=== PATIENT | male | born 1945 | race American Indian/Alaskan Native ===

== ENCOUNTER 2017-06-08 03:59 | Inpatient (IN) | payer MEDICARE ==
--- NOTE | 2017-06-08 05:31 | XRay Report ---
FINAL REPORT EXAM: XR CHEST ROUTINE 2V HISTORY: Shortness of breath TECHNIQUE: AP and lateral chest radiographs PRIORS: 05/06/2017 FINDINGS: No mediastinal shift. Cardiac silhouette is not enlarged. Aortic arch calcification. No pneumothorax, effusion, or focal pulmonary opacity. No acute skeletal finding. IMPRESSION: No focal pulmonary opacity.
[2017-06-08 05:45] LABS: Anion Gap 22 mmol/L; BUN/Creatinine Ratio 13; Blood Urea Nitrogen 13 mg/dL (9-20); Calcium 9.3 mg/dL (8.4-10.2); Carbon Dioxide 22 mmol/L (22-30); Glucose 125 mg/dL (75-100); Potassium 4.1 mmol/L (3.6-5.0); Sodium 139 mmol/L (137-145)
[2017-06-08 05:57] LABS: Basophils % (Auto) 0.9 % (0.0-1.8); Eosinophils % (Auto) 4.6 % (0.0-4.3); Hematocrit 44.9 % (35.5-45.6); Hemoglobin 14.6 gm/dl (11.8-15.2); Mean Corpuscular HGB Conc 33 % (32-34); Mean Corpuscular Hemoglobin 30 pg (28-32); Mean Corpuscular Volume 92 fl (84-94); Platelet Count 211 K/mm3 (140-440); Red Blood Count 4.91 M/mm3 (3.65-5.03); Red Cell Distribution Width 13.1 % (13.2-15.2); White Blood Count 5.6 K/mm3 (4.5-11.0)
[2017-06-08 07:05] LABS: Bilirubin,Urine NEG (Negative); Blood,Urine NEG (Negative); Ketones,Urine NEG (Negative); Leukocyte Esterase,Urine NEG (Negative); Nitrite,Urine NEG (Negative); Protein,Urine <15 mg/dL mg/dL (Negative)
[2017-06-08] MEDS ORDERED: NITRO-BID 2% TP ONE (08:56)
[2017-06-08] MEDS ORDERED: ZOFRAN IV ONE (08:56)
[2017-06-08] MEDS ORDERED: ASPIRIN PO ONE (08:57)
--- NOTE | 2017-06-08 09:04 | Emergency Department Report ---
HPI - General Chief Complaint: Chest Pain Time Seen by Provider: 06/08/17 08:46 - HPI HPI: Room 24 The patient is a 71-year-old male presenting with a chief complaint of chest pain. The patient's daughter states at approximately 02:00 the patient called her complaint of chest pain shortness of breath and left arm numbness. The daughter says patient was trembling as he has done in the past. The daughter states she left the room to get equipment to check his blood pressure when she heard him fall in the bathroom. Daughter states the patient was unconscious for approximately 1-2 minutes. Patient describes chest pain as a pressure and associated with nausea without vomiting. Patient also has shortness of breath and diaphoresis with this chest pain. The patient currently denies chest pain. The patient's last stress test occurred approximately one year ago but he has never had a cardiac catheterization Location: Chest Duration: [See above] Quality: Pressure Severity: Currently 0/10 Modifying factors: [see above] Context: [see above] Mode of transportation: [not driving] ED Past Medical Hx - Past Medical History Previous Medical History?: Yes Hx Hypertension: Yes Hx of Cancer: Yes (prostate CA) Additional medical history: high cholesterol - Surgical History Past Surgical History?: Yes Additional Surgical History: hernia repair, prostate seed implant - Family History Family history: no significant - Social History Smoking Status: Never Smoker Substance Use Type: None - Medications Home Medications: Home Medications Medication Instructions Recorded Confirmed Last Taken Type Lisinopril [Zestril TAB] 20 mg PO QDAY 11/07/13 05/06/17 05/05/17 09:00 History 20 mg Simvastatin 20 mg PO QHS 11/07/13 05/06/17 05/05/17 21:00 History 20 mg amLODIPine [Norvasc] 10 mg PO DAILY 11/07/13 05/06/17 05/05/17 History 10 mg oxyCODONE /ACETAMINOPHEN [Percocet 1 tab PO Q6H PRN #20 tablet 05/07/17 Unknown Rx 5/325 mg] Acetaminophen [Acetaminophen TAB] 325 mg PO Q4H PRN #30 tablet 05/08/17 Unknown Rx ED Review of Systems ROS: Stated complaint: CP Other details as noted in HPI Constitutional: diaphoresis Respiratory: shortness of breath Cardiovascular: chest pain Gastrointestinal: nausea. denies: vomiting Neurological: paresthesias Physical Exam - Physical Exam Vital Signs: Vital Signs 06/08/17 06/08/17 04:52 08:03 Temperature 98.5 F 98.1 F Pulse Rate 69 60 Respiratory 18 19 Rate Blood Pressure 156/70 Blood Pressure 164/72 [Left] O2 Sat by Pulse 100 100 Oximetry Physical Exam: GENERAL: The patient is well-developed well-nourished male lying on stretcher not appearing to be in acute distress. [] HEENT: Normocephalic. Atraumatic. Extraocular motions are intact. Patient has moist mucous membranes. NECK: Supple. Trachea midline. No axial step off CHEST/LUNGS: Clear to auscultation. There is no respiratory distress noted. HEART/CARDIOVASCULAR: Regular. There is no tachycardia. There is no gallop rub or murmur. ABDOMEN: Abdomen is soft, nontender. Patient has normal bowel sounds. There is no abdominal distention. SKIN: There is no rash. There is no edema. There is no diaphoresis. NEURO: The patient is awake, alert, and oriented. The patient is cooperative. The patient has normal speech MUSCULOSKELETAL: There is no evidence of acute injury. ED Course Vital Signs 06/08/17 06/08/17 04:52 08:03 Temperature 98.5 F 98.1 F Pulse Rate 69 60 Respiratory 18 19 Rate Blood Pressure 156/70 Blood Pressure 164/72 [Left] O2 Sat by Pulse 100 100 Oximetry ED Medical Decision Making - Lab Data Result diagrams: 06/08/17 05:04 06/08/17 05:04 Laboratory Tests 06/08/17 06/08/17 06/08/17 05:04 05:04 05:55 WBC 5.6 RBC 4.91 Hgb 14.6 Hct 44.9 MCV 92 MCH 30 MCHC 33 RDW 13.1 L Plt Count 211 Lymph % (Auto) 36.2 H [place] % (Auto) 9.3 H Eos % (Auto) 4.6 H Baso % (Auto) 0.9 Lymph # 2.0 [place] # 0.5 Eos # 0.3 Baso # 0.0 Seg Neutrophils % 49.0 Seg Neutrophils # 2.7 Sodium 139 Potassium 4.1 Chloride 99.0 Carbon Dioxide 22 Anion Gap 22 BUN 13 Creatinine 1.0 Estimated GFR > 60 BUN/Creatinine Ratio 13 Glucose 125 H Calcium 9.3 Troponin T < 0.010 Urine Color Straw Urine Turbidity Clear Urine pH 6.0 Ur Specific [place] 1.009 Urine Protein <15 mg/dl Urine Glucose (UA) Neg Urine Ketones Neg Urine Blood Neg Urine Nitrite Neg Urine Bilirubin Neg Urine Urobilinogen 2.0 Ur Leukocyte Esterase Neg Urine WBC (Auto) 3.0 Urine RBC (Auto) 2.0 U Epithel Cells (Auto) < 1.0 - EKG Data -: EKG Interpreted by Me EKG shows normal: sinus rhythm Rate: normal - EKG Data When compared to previous EKG there are: no significant change Interpretation: unchanged when compared t (05/06/2017) - Radiology Data Radiology results: image reviewed (chest x-ray) interpreted by me: Chest x-ray- no focal infiltrates, no pneumothorax FINAL REPORT EXAM: XR CHEST ROUTINE 2V HISTORY: Shortness of breath TECHNIQUE: AP and lateral chest radiographs PRIORS: 05/06/2017 FINDINGS: No mediastinal shift. Cardiac silhouette is not enlarged. Aortic arch calcification. No pneumothorax, effusion, or focal pulmonary opacity. No acute skeletal finding. IMPRESSION: No focal pulmonary opacity. Transcribed By: MB Dictated By: MILES HERNÁNDEZ MD Electronically Authenticated By: MILES HERNÁNDEZ MD Signed Date/Time: 06/08/17127 DD/ 7 TD/TT: 06/08/17127 - Differential Diagnosis ACS, GERD, pericarditis, dysrhythmia Critical care attestation.: If time is entered above; I have spent that time in minutes in the direct care of this critically ill patient, excluding procedure time. ED Disposition Clinical Impression: Syncope, Chest pain Disposition: OP ADMIT IP TO THIS HOSP Is pt being admited?: Yes Does the pt Need Aspirin: Yes Condition: Fair Instructions: Syncope (ED), Chest Pain (ED) Referrals: MOI LOVE MD [Primary Care Provider] - 3-5 Days Time of Disposition: 09:07 (hospitalist paged)
[2017-06-08] MEDS ORDERED: MORPHINE IV PRN (10:41)
[2017-06-08] MEDS ORDERED: TYLENOL PO PRN (10:41)
[2017-06-08] MEDS ORDERED: DULCOLAX PR PRN (10:41)
[2017-06-08] MEDS ORDERED: ZOFRAN IV PRN (10:41)
[2017-06-08] MEDS ORDERED: NITROSTAT SL PRN (10:44)
--- NOTE | 2017-06-08 10:44 | History and Physical Report ---
<THADDEUS CAMARGO - Last Filed: 06/08/17 11:53> History of Present Illness Date of examination: 06/08/17 Date of admission: 06/08/2017 Chief complaint: Chest pain and syncope History of present illness: Patient is a 71-year-old male with a past medical history of hypertension, prostate cancer and hyperlipidemia who presents to emergency department for complaining of left sided chest pain and syncope. Per his daughter the pain began this morning around 2:00 AM intermittent left side chest pain. patient's daughter states the patient called her complaint of chest pain shortness of breath and left arm numbness; by the time she got to his room ; she found him trembling his whole body. She left him in his room to get equipment to check his blood pressure; shortly after she heard him fall in the bathroom. She found him lying on the floor unconscious; she thinks he lost consciousness for about 1-2 minutes. Patient located his pain over his substerna somewhat in the left pigastric area. Patient described as,constant burning, stabbing pain. The pain lasted for few hours and he states that pain was radiating to left arm. Also the patient did experience some tingling and numbness in his left arm after the pain ceased. Pain increased with palpation, there is no reliving factors. The painful episodes did not increase in intensity or severity during this time. The patient denies chest pain at present time. He denies shortness of breath, and vomiting during these episodes of pain. Patient reported nausea and diaphoresis including feeling clammy.Patient has a recent syncopal episode and chest pain for which he was admitted here [facility] and [facility] with extensive cardiac workup was performed. Past History Past Medical History: hypertension, hyperlipidemia, other (prostate cancer) Past Surgical History: cholecystectomy, Other Social history: denies: smoking, alcohol abuse Family history: denies: hypertension Medications and Allergies Allergies Allergy/AdvReac Type Severity Reaction Status Date / Time No Known Allergies Allergy Verified 11/06/13 16:30 Home Medications Medication Instructions Recorded Confirmed Last Taken Type Lisinopril [Zestril TAB] 20 mg PO QDAY 11/07/13 06/08/17 06/07/17 History amLODIPine [Norvasc] 10 mg PO DAILY 11/07/13 06/08/17 06/07/17 History AtorvaSTATin [Lipitor] 20 mg PO QHS 06/08/17 06/08/17 06/07/17 History Active Meds: Active Medications Acetaminophen (Tylenol) 650 mg PO Q4H PRN PRN Reason: Pain MILD(1-3)/Fever >100.5/BATES Bisacodyl (Dulcolax) 10 mg [place] QDAY PRN PRN Reason: Constipation unrelieved by MOM Enoxaparin Sodium (Lovenox) 40 mg SUB-Q QDAY [facility] Morphine Sulfate (Morphine) 2 mg IV Q4H PRN PRN Reason: Pain, Moderate (4-6) Ondansetron HCl (Zofran) 4 mg IV Q8H PRN PRN Reason: N/V unrelieved by Reglan Review of Systems Constitutional: sweats, no weight loss, no weight gain, no fever, no chills Ears, nose, mouth and throat: no nose pain, no nasal congestion, no nasal discharge Cardiovascular: chest pain, no lightheadedness, no shortness of breath, no dyspnea on exertion, no paroxysmal nocturnal dyspnea Respiratory: no cough, no cough with sputum, no shortness of breath, no dyspnea on exertion Gastrointestinal: no nausea, no vomiting, no diarrhea Genitourinary Male: no urinary frequency, no urinary hesitancy, no nocturia Rectal: no incontinence, no bleeding Musculoskeletal: no neck pain, no shooting arm pain, no arm numbness/tingling Integumentary: no redness, no sores, no wounds Neurological: no weakness, no parathesias, no numbness, no tingling Psychiatric: no sleep disturbances, no insomnia, no hypersomnia, no change in appetite Endocrine: no cold intolerance, no heat intolerance, no polyphagia, no excessive thirst Hematologic/Lymphatic: no easy bruising, no easy bleeding Allergic/Immunologic: no urticaria, no allergic rhinitis Exam - Constitutional Vitals: Temp Pulse Resp BP Pulse Ox 98.1 F 60 19 164/72 100 06/08/17 08:03 06/08/17 08:03 06/08/17 08:03 06/08/17 08:03 06/08/17 08:03 General appearance: Present: no acute distress - EENT Eyes: Present: PERRL ENT: hearing intact - Neck Neck: Present: supple - Respiratory Respiratory effort: normal Respiratory: bilateral: CTA - Cardiovascular Rhythm: regular Heart Sounds: Present: S1 & S2 - Abdominal General gastrointestinal: Present: soft, non-tender Male genitourinary: Present: deferred - Rectal Rectal Exam: deferred - Integumentary Integumentary: Present: clear, warm, dry - Musculoskeletal Musculoskeletal: strength equal bilaterally - Psychiatric Psychiatric: appropriate mood/affect - Neurologic Neurologic: moves all extremities - Allied Health Allied health notes reviewed: nursing Results - Labs CBC & Chem 7: 06/08/17 05:04 06/08/17 05:04 Labs: Laboratory Last Values WBC 5.6 K/mm3 (4.5-11.0) 06/08/17 05:04 RBC 4.91 M/mm3 (3.65-5.03) 06/08/17 05:04 Hgb 14.6 gm/dl (11.8-15.2) 06/08/17 05:04 Hct 44.9 % (35.5-45.6) 06/08/17 05:04 MCV 92 fl (84-94) 06/08/17 05:04 MCH 30 pg (28-32) 06/08/17 05:04 MCHC 33 % (32-34) 06/08/17 05:04 RDW 13.1 % (13.2-15.2) L 06/08/17 05:04 Plt Count 211 K/mm3 (140-440) 06/08/17 05:04 Lymph % (Auto) 36.2 % (13.4-35.0) H 06/08/17 05:04 [place] % (Auto) 9.3 % (0.0-7.3) H 06/08/17 05:04 Eos % (Auto) 4.6 % (0.0-4.3) H 06/08/17 05:04 Baso % (Auto) 0.9 % (0.0-1.8) 06/08/17 05:04 Lymph # 2.0 K/mm3 (1.2-5.4) 06/08/17 05:04 [place] # 0.5 K/mm3 (0.0-0.8) 06/08/17 05:04 Eos # 0.3 K/mm3 (0.0-0.4) 06/08/17 05:04 Baso # 0.0 K/mm3 (0.0-0.1) 06/08/17 05:04 Seg Neutrophils % 49.0 % (40.0-70.0) 06/08/17 05:04 Seg Neutrophils # 2.7 K/mm3 (1.8-7.7) 06/08/17 05:04 Sodium 139 mmol/L (137-145) 06/08/17 05:04 Potassium 4.1 mmol/L (3.6-5.0) 06/08/17 05:04 Chloride 99.0 mmol/L (98-107) 06/08/17 05:04 Carbon Dioxide 22 mmol/L (22-30) 06/08/17 05:04 Anion Gap 22 mmol/L 06/08/17 05:04 BUN 13 mg/dL (9-20) 06/08/17 05:04 Creatinine 1.0 mg/dL (0.8-1.5) 06/08/17 05:04 Estimated GFR > 60 ml/min 06/08/17 05:04 BUN/Creatinine Ratio 13 % 06/08/17 05:04 Glucose 125 mg/dL (75-100) H 06/08/17 05:04 Calcium 9.3 mg/dL (8.4-10.2) 06/08/17 05:04 Troponin T < 0.010 ng/mL (0.00-0.029) 06/08/17 08:01 Urine Color Straw (Yellow) 06/08/17 05:55 Urine Turbidity Clear (Clear) 06/08/17 05:55 Urine pH 6.0 (5.0-7.0) 06/08/17 05:55 Ur Specific [place] 1.009 (1.003-1.030) 06/08/17 05:55 Urine Protein <15 mg/dl mg/dL (Negative) 06/08/17 05:55 Urine Glucose (UA) Neg mg/dL (Negative) 06/08/17 05:55 Urine Ketones Neg mg/dL (Negative) 06/08/17 05:55 Urine Blood Neg (Negative) 06/08/17 05:55 Urine Nitrite Neg (Negative) 06/08/17 05:55 Urine Bilirubin Neg (Negative) 06/08/17 05:55 Urine Urobilinogen 2.0 mg/dL (<2.0) 06/08/17 05:55 Ur Leukocyte Esterase Neg (Negative) 06/08/17 05:55 Urine WBC (Auto) 3.0 /HPF (0.0-6.0) 06/08/17 05:55 Urine RBC (Auto) 2.0 /HPF (0.0-6.0) 06/08/17 05:55 U Epithel Cells (Auto) < 1.0 /HPF (0-13.0) 06/08/17 05:55 Assessment and Plan Assessment and plan: Patient is a 71-year-old male with a past medical history of hypertension, prostate cancer and hyperlipidemia who presents to emergency department for complaining of left sided chest pain and syncope. Per his daughter the pain began this morning around 2:00 AM intermittent left side chest pain. Chest pain We will admit to telemetry floor. EKG on admissionshowing bradycardia, no other changes Negative cardiac enzyme X2 Start on aspirin Nitroglycerin when necessary Morphine ordered for pain Cardiology consulted and stress test performed 03/04 - no evidence of ischemia or necrosis, EF 60% Cardiology consult Bradycardia/SSS Extensive workup at [facility] Status post 1 month Holter monitor - 30 day event monitor was reviewed by cardiology and there were no significant events, so there is no indication for pacemaker placement Holding his home CCB Cardiology consult Hypertension Continued on lisinopril Holding amlodipine due to bradycardia Monitor BP and adjust treatment as needed Hyperlipidemia Continue Zocor DVT prophylaxis Lovenox Advance Directives: Yes VTE prophylaxis?: Chemical Contraindication Mechanical VTE Prophylaxis: Treatment Not Indicated Plan of care discussed with patient/family: Yes <MILES KAMARA - Last Filed: 06/09/17 19:19> History of Present Illness Date of admission: 06/08/17 10:42 Medications and Allergies Active Meds: Active Medications Acetaminophen (Tylenol) 650 mg PO Q4H PRN PRN Reason: Pain MILD(1-3)/Fever >100.5/BATES Aspirin (Aspirin) 325 mg PO DAILY [facility] Last Admin: 06/09/17 10:50 Dose: 325 mg Atorvastatin Calcium (Lipitor) 20 mg PO QHS [facility] Last Admin: 06/08/17 21:45 Dose: 20 mg Bisacodyl (Dulcolax) 10 mg [place] QDAY PRN PRN Reason: Constipation unrelieved by MOM Enoxaparin Sodium (Lovenox) 40 mg SUB-Q QDAY [facility] Last Admin: 06/09/17 10:50 Dose: 40 mg Lisinopril (Zestril) 20 mg PO QDAY [facility] Last Admin: 06/09/17 10:50 Dose: 20 mg Morphine Sulfate (Morphine) 2 mg IV Q4H PRN PRN Reason: Pain, Moderate (4-6) Nitroglycerin (Nitrostat) 0.4 mg SL .Q5MIN PRN PRN Reason: Chest Pain Ondansetron HCl (Zofran) 4 mg IV Q8H PRN PRN Reason: N/V unrelieved by Reglan Exam - Constitutional Vitals: Temp Pulse Resp BP Pulse Ox 98.4 F 59 L 18 122/64 97 06/09/17 04:03 06/09/17 04:03 06/09/17 04:03 06/09/17 04:03 06/09/17 04:03 Results - Labs CBC & Chem 7: 06/09/17 05:34 06/09/17 05:34 Labs: Laboratory Last Values WBC 5.1 K/mm3 (4.5-11.0) 06/09/17 05:34 RBC 4.82 M/mm3 (3.65-5.03) 06/09/17 05:34 Hgb 14.7 gm/dl (11.8-15.2) 06/09/17 05:34 Hct 43.9 % (35.5-45.6) 06/09/17 05:34 MCV 91 fl (84-94) 06/09/17 05:34 MCH 31 pg (28-32) 06/09/17 05:34 MCHC 33 % (32-34) 06/09/17 05:34 RDW 13.2 % (13.2-15.2) 06/09/17 05:34 Plt Count 199 K/mm3 (140-440) 06/09/17 05:34 Lymph % (Auto) 33.9 % (13.4-35.0) 06/09/17 05:34 Pierce % (Auto) 11.7 % (0.0-7.3) H 06/09/17 05:34 Eos % (Auto) 4.9 % (0.0-4.3) H 06/09/17 05:34 Baso % (Auto) 0.8 % (0.0-1.8) 06/09/17 05:34 Lymph # 1.7 K/mm3 (1.2-5.4) 06/09/17 05:34 [place] # 0.6 K/mm3 (0.0-0.8) 06/09/17 05:34 Eos # 0.3 K/mm3 (0.0-0.4) 06/09/17 05:34 Baso # 0.0 K/mm3 (0.0-0.1) 06/09/17 05:34 Seg Neutrophils % 48.7 % (40.0-70.0) 06/09/17 05:34 Seg Neutrophils # 2.5 K/mm3 (1.8-7.7) 06/09/17 05:34 D-Dimer 158.57 ng/mlDDU (0-234) 06/08/17 15:13 Sodium 141 mmol/L (137-145) 06/09/17 05:34 Potassium 4.7 mmol/L (3.6-5.0) 06/09/17 05:34 Chloride 103.2 mmol/L (98-107) 06/09/17 05:34 Carbon Dioxide 24 mmol/L (22-30) 06/09/17 05:34 Anion Gap 19 mmol/L 06/09/17 05:34 BUN 11 mg/dL (9-20) 06/09/17 05:34 Creatinine 1.0 mg/dL (0.8-1.5) 06/09/17 05:34 Estimated GFR > 60 ml/min 06/09/17 05:34 BUN/Creatinine Ratio 11 % 06/09/17 05:34 Glucose 94 mg/dL (75-100) 06/09/17 05:34 Calcium 9.2 mg/dL (8.4-10.2) 06/09/17 05:34 Troponin T < 0.010 ng/mL (0.00-0.029) 06/08/17 10:59 Urine Color Straw (Yellow) 06/08/17 05:55 Urine Turbidity Clear (Clear) 06/08/17 05:55 Urine pH 6.0 (5.0-7.0) 06/08/17 05:55 Ur Specific [place] 1.009 (1.003-1.030) 06/08/17 05:55 Urine Protein <15 mg/dl mg/dL (Negative) 06/08/17 05:55 Urine Glucose (UA) Neg mg/dL (Negative) 06/08/17 05:55 Urine Ketones Neg mg/dL (Negative) 06/08/17 05:55 Urine Blood Neg (Negative) 06/08/17 05:55 Urine Nitrite Neg (Negative) 06/08/17 05:55 Urine Bilirubin Neg (Negative) 06/08/17 05:55 Urine Urobilinogen 2.0 mg/dL (<2.0) 06/08/17 05:55 Ur Leukocyte Esterase Neg (Negative) 06/08/17 05:55 Urine WBC (Auto) 3.0 /HPF (0.0-6.0) 06/08/17 05:55 Urine RBC (Auto) 2.0 /HPF (0.0-6.0) 06/08/17 05:55 U Epithel Cells (Auto) < 1.0 /HPF (0-13.0) 06/08/17 05:55 Assessment and Plan Assessment and plan: I saw and evaluated the patient. I agree with the findings and the plan of care as documented in the Nurse Practitioner's~note, with the following corrections and additions. Patient is 71 yo patient with chest pain and syncope. Admit to telemetry, Echo. Cardiology to see.
[2017-06-09 06:04] LABS: Basophils % (Auto) 0.8 % (0.0-1.8); Eosinophils % (Auto) 4.9 % (0.0-4.3); Hematocrit 43.9 % (35.5-45.6); Hemoglobin 14.7 gm/dl (11.8-15.2); Mean Corpuscular HGB Conc 33 % (32-34); Mean Corpuscular Hemoglobin 31 pg (28-32); Mean Corpuscular Volume 91 fl (84-94); Platelet Count 199 K/mm3 (140-440); Red Blood Count 4.82 M/mm3 (3.65-5.03); Red Cell Distribution Width 13.2 % (13.2-15.2); White Blood Count 5.1 K/mm3 (4.5-11.0)
[2017-06-09 06:26] LABS: Anion Gap 19 mmol/L; BUN/Creatinine Ratio 11; Blood Urea Nitrogen 11 mg/dL (9-20); Calcium 9.2 mg/dL (8.4-10.2); Carbon Dioxide 24 mmol/L (22-30); Chloride 103.2 mmol/L (98-107); Glucose 94 mg/dL (75-100); Potassium 4.7 mmol/L (3.6-5.0); Sodium 141 mmol/L (137-145)
[2017-06-09] MEDS ORDERED: NORVASC PO SCH (10:00)
[2017-06-09] MEDS: ASPIRIN PO SCH (10:50)
[2017-06-09] MEDS: ZESTRIL PO SCH (10:50)
[2017-06-09] MEDS: LOVENOX SUB-Q SCH (10:50)
--- NOTE | 2017-06-09 11:45 | Consultation ---
History of Present Illness Consult date: 06/09/17 Requesting physician: MILES KAMARA Consult reason: chest pain, syncope History of present illness: Patient is a 71-year-old male with a past medical history of hypertension, prostate cancer and hyperlipidemia who presents to emergency department for complaining of left sided chest pain and syncope. Per his daughter the pain began this morning around 2:00 AM intermittent left side chest pain. patient's daughter states the patient called her complaint of chest pain shortness of breath and left arm numbness; by the time she got to his room ; she found him trembling his whole body. She left him in his room to get equipment to check his blood pressure; shortly after she heard him fall in the bathroom. She found him lying on the floor unconscious; she thinks he lost consciousness for about 1-2 minutes. Patient located his pain over his substerna somewhat in the left pigastric area. Patient described as,constant burning, stabbing pain. The pain lasted for few hours and he states that pain was radiating to left arm. Also the patient did experience some tingling and numbness in his left arm after the pain ceased. Pain increased with palpation, there is no reliving factors. The painful episodes did not increase in intensity or severity during this time. as per ed. pt today gives limited history. Patient states having multiple syncopal episodes lasting for brief episode. Review the records from [facility] negative cardiac and Holter workup. Unable to contact daughter for further information patient still states some intermittent chest pain is not exertional nonradiating no relieving or aggravating factors Past History Past Medical History: hypertension, hyperlipidemia, other (prostate cancer) Past Surgical History: cholecystectomy, Other Social history: denies: smoking, alcohol abuse Family history: denies: hypertension Medications and Allergies Allergies Allergy/AdvReac Type Severity Reaction Status Date / Time No Known Allergies Allergy Verified 11/06/13 16:30 Home Medications Medication Instructions Recorded Confirmed Last Taken Type Lisinopril [Zestril TAB] 20 mg PO QDAY 11/07/13 06/08/17 06/07/17 History amLODIPine [Norvasc] 10 mg PO DAILY 11/07/13 06/08/17 06/07/17 History AtorvaSTATin [Lipitor] 20 mg PO QHS 06/08/17 06/08/17 06/07/17 History Active Meds: Active Medications Acetaminophen (Tylenol) 650 mg PO Q4H PRN PRN Reason: Pain MILD(1-3)/Fever >100.5/BATES Aspirin (Aspirin) 325 mg PO DAILY [facility] Last Admin: 06/09/17 10:50 Dose: 325 mg Atorvastatin Calcium (Lipitor) 20 mg PO QHS [facility] Last Admin: 06/08/17 21:45 Dose: 20 mg Bisacodyl (Dulcolax) 10 mg [place] QDAY PRN PRN Reason: Constipation unrelieved by MOM Enoxaparin Sodium (Lovenox) 40 mg SUB-Q QDAY [facility] Last Admin: 06/09/17 10:50 Dose: 40 mg Lisinopril (Zestril) 20 mg PO QDAY [facility] Last Admin: 06/09/17 10:50 Dose: 20 mg Morphine Sulfate (Morphine) 2 mg IV Q4H PRN PRN Reason: Pain, Moderate (4-6) Nitroglycerin (Nitrostat) 0.4 mg SL .Q5MIN PRN PRN Reason: Chest Pain Ondansetron HCl (Zofran) 4 mg IV Q8H PRN PRN Reason: N/V unrelieved by Reglan Review of Systems All systems: negative (hpi) Physical Examination Vital Signs Temp Pulse Resp BP Pulse Ox 98.5 F 69 18 156/70 100 06/08/17 04:52 06/08/17 04:52 06/08/17 04:52 06/08/17 04:52 06/08/17 04:52 General appearance: no acute distress, well-nourished HEENT: Positive: PERRL, Mucus Membranes Moist Neck: Positive: neck supple, trachea midline Cardiac: Positive: Reg Rate and Rhythm, S1/S2. Negative: Audible Murmur Lungs: Positive: clear to auscultation, Normal Breath Sounds Neuro: Positive: Grossly Intact Abdomen: Positive: Soft, Active Bowel Sounds. Negative: Tender, Distended Male genitourinary: Positive: normal Skin: Positive: Clear Incision: Cardiac Cath Site Musculoskeletal: No Pain, Normal Range of Motion Extremities: Present: normal. Absent: edema Results 06/09/17 05:34 06/09/17 05:34 CBC 06/09/17 Range/Units 05:34 WBC 5.1 (4.5-11.0) K/mm3 RBC 4.82 (3.65-5.03) M/mm3 Hgb 14.7 (11.8-15.2) gm/dl Hct 43.9 (35.5-45.6) % Plt Count 199 (140-440) K/mm3 Lymph # 1.7 (1.2-5.4) K/mm3 [place] # 0.6 (0.0-0.8) K/mm3 Eos # 0.3 (0.0-0.4) K/mm3 Baso # 0.0 (0.0-0.1) K/mm3 Comprehensive Metabolic Panel 06/09/17 Range/Units 05:34 Sodium 141 (137-145) mmol/L Potassium 4.7 (3.6-5.0) mmol/L Chloride 103.2 (98-107) mmol/L Carbon Dioxide 24 (22-30) mmol/L BUN 11 (9-20) mg/dL Creatinine 1.0 (0.8-1.5) mg/dL Glucose 94 (75-100) mg/dL Calcium 9.2 (8.4-10.2) mg/dL - Imaging and Cardiology Echo: report reviewed (06/08/2017 normal LV function no significant regurgitations) EKG interpretations - Telemetry EKG Rhythm: Sinus Rhythm (normal sinus rhythm nonspecific ST-T) Assessment and Plan Syncope Chest pain Hypertension Hyperlipidemia Prostate cancer Recommend carotid duplex negative echocardiogram negative in has chronic monitoring has been negative will do a lexiscan stress test in a.m. for recurrent chest pain
--- NOTE | 2017-06-09 19:16 | Progress Note ---
Assessment and Plan Assessment and plan: Patient is a 71-year-old male with a past medical history of hypertension, prostate cancer and hyperlipidemia who presents to emergency department for complaining of left sided chest pain and syncope. Per his daughter the pain began this morning around 2:00 AM intermittent left side chest pain. Chest pain EKG on admission showing bradycardia, no other changes Negative cardiac enzyme X2 continue Aspirin Nitroglycerin when necessary Cardiology consulted. For stress test tomorrow. Syncope. Obtain Echo. cardiology consulted. I discussed with Dr. Mast. For stress test tomorrow. Bradycardia/SSS Extensive workup at [facility] Status post 1 month Holter monitor - 30 day event monitor was reviewed by cardiology and there were no significant events, so there is no indication for pacemaker placement Holding his home CCB Hypertension Continued on lisinopril Monitor BP and adjust treatment as needed Hyperlipidemia Continue Zocor DVT prophylaxis with Lovenox Full code status History Interval history: chest pain, syncope Hospitalist Physical - Physical exam Narrative exam: GEN APPEARANCE : Not in acute distress, HEENT: Normocephalic, atraumatic NECK : supple, no JVD LUNGS: Clear to auscultation bilaterally, no rales, no wheeze HEART: S1 and S2 regular, no murmurs, rubs or gallop, ABD: Soft, non tender, non distended, normal bowel sounds EXT: No edema, no clubbing, no cyanosis NEURO: Awake,alert, oriented x 3, no facial asymmetry,no focal signs Psych: Normal mood - Constitutional Vitals: Temp Pulse Resp BP Pulse Ox 98.4 F 59 L 18 122/64 97 06/09/17 04:03 06/09/17 04:03 06/09/17 04:03 06/09/17 04:03 06/09/17 04:03 Results - Labs CBC & Chem 7: 06/09/17 05:34 06/09/17 05:34 Labs: Laboratory Last Values WBC 5.1 K/mm3 (4.5-11.0) 06/09/17 05:34 RBC 4.82 M/mm3 (3.65-5.03) 06/09/17 05:34 Hgb 14.7 gm/dl (11.8-15.2) 06/09/17 05:34 Hct 43.9 % (35.5-45.6) 06/09/17 05:34 MCV 91 fl (84-94) 06/09/17 05:34 MCH 31 pg (28-32) 06/09/17 05:34 MCHC 33 % (32-34) 06/09/17 05:34 RDW 13.2 % (13.2-15.2) 06/09/17 05:34 Plt Count 199 K/mm3 (140-440) 06/09/17 05:34 Lymph % (Auto) 33.9 % (13.4-35.0) 06/09/17 05:34 [place] % (Auto) 11.7 % (0.0-7.3) H 06/09/17 05:34 Eos % (Auto) 4.9 % (0.0-4.3) H 06/09/17 05:34 Baso % (Auto) 0.8 % (0.0-1.8) 06/09/17 05:34 Lymph # 1.7 K/mm3 (1.2-5.4) 06/09/17 05:34 [place] # 0.6 K/mm3 (0.0-0.8) 06/09/17 05:34 Eos # 0.3 K/mm3 (0.0-0.4) 06/09/17 05:34 Baso # 0.0 K/mm3 (0.0-0.1) 06/09/17 05:34 Seg Neutrophils % 48.7 % (40.0-70.0) 06/09/17 05:34 Seg Neutrophils # 2.5 K/mm3 (1.8-7.7) 06/09/17 05:34 D-Dimer 158.57 ng/mlDDU (0-234) 06/08/17 15:13 Sodium 141 mmol/L (137-145) 06/09/17 05:34 Potassium 4.7 mmol/L (3.6-5.0) 06/09/17 05:34 Chloride 103.2 mmol/L (98-107) 06/09/17 05:34 Carbon Dioxide 24 mmol/L (22-30) 06/09/17 05:34 Anion Gap 19 mmol/L 06/09/17 05:34 BUN 11 mg/dL (9-20) 06/09/17 05:34 Creatinine 1.0 mg/dL (0.8-1.5) 06/09/17 05:34 Estimated GFR > 60 ml/min 06/09/17 05:34 BUN/Creatinine Ratio 11 % 06/09/17 05:34 Glucose 94 mg/dL (75-100) 06/09/17 05:34 Calcium 9.2 mg/dL (8.4-10.2) 06/09/17 05:34 Troponin T < 0.010 ng/mL (0.00-0.029) 06/08/17 10:59 Urine Color Straw (Yellow) 06/08/17 05:55 Urine Turbidity Clear (Clear) 06/08/17 05:55 Urine pH 6.0 (5.0-7.0) 06/08/17 05:55 Ur Specific [place] 1.009 (1.003-1.030) 06/08/17 05:55 Urine Protein <15 mg/dl mg/dL (Negative) 06/08/17 05:55 Urine Glucose (UA) Neg mg/dL (Negative) 06/08/17 05:55 Urine Ketones Neg mg/dL (Negative) 06/08/17 05:55 Urine Blood Neg (Negative) 06/08/17 05:55 Urine Nitrite Neg (Negative) 06/08/17 05:55 Urine Bilirubin Neg (Negative) 06/08/17 05:55 Urine Urobilinogen 2.0 mg/dL (<2.0) 06/08/17 05:55 Ur Leukocyte Esterase Neg (Negative) 06/08/17 05:55 Urine WBC (Auto) 3.0 /HPF (0.0-6.0) 06/08/17 05:55 Urine RBC (Auto) 2.0 /HPF (0.0-6.0) 06/08/17 05:55 U Epithel Cells (Auto) < 1.0 /HPF (0-13.0) 06/08/17 05:55
[2017-06-10] MEDS ORDERED: LEXISCAN IV ONE ×2 (09:19→10:12)
[2017-06-10] MEDS: LOVENOX SUB-Q SCH (09:20)
[2017-06-10] MEDS: ASPIRIN PO SCH (09:20)
[2017-06-10] MEDS: ZESTRIL PO SCH (09:20)
--- NOTE | 2017-06-10 11:55 | Progress Note ---
Assessment and Plan Syncope Chest pain possible gi Hypertension Hyperlipidemia Prostate cancer rec: Patient's echocardiogram reveals normal function with no significant regurgitations marker perfusion scan shows no significant ischemia carotid duplexcarotid disease patient on telemetry demonstrates normal rhythm with no pauses or atrial fibrillation no obvious cardiac cause of patient's syncope or chest pain continue medical management patient does have some unsteady gait may consider neurological evaluation as an outpatient patient may be discharged from a cardiovascular point of view Subjective Date of service: 06/10/17 Principal diagnosis: chest pain and syncope Interval history: pt chest pain is better Objective Vital Signs Temp Pulse Resp BP Pulse Ox 06/10/17 10:41 90 176/68 06/10/17 10:40 80 176/68 06/10/17 10:39 89 180/72 06/10/17 10:38 111 H 154/72 06/10/17 10:37 109 H 165/75 06/10/17 10:18 62 159/67 06/10/17 05:19 97.8 F 59 L 19 128/69 95 06/10/17 01:21 98.9 F 52 L 18 132/58 96 06/09/17 21:27 18 06/09/17 20:57 98.8 F 54 L 20 142/65 98 06/09/17 20:30 52 L 06/09/17 16:01 98.0 F 54 L 18 146/57 98 - Physical Examination General: No Apparent Distress HEENT: Positive: PERRL, Mucus Membranes Moist Neck: Positive: neck supple, trachea midline Cardiac: Positive: Reg Rate and Rhythm Lungs: Positive: clear to auscultation Neuro: Positive: Grossly Intact Abdomen: Positive: Soft, Active Bowel Sounds. Negative: Tender, Distended Skin: Positive: Clear Incision: Cardiac Cath Site Musculoskeletal: No Pain, Normal Range of Motion Gait: Poor Gait Extremities: Present: normal. Absent: edema - Imaging and Cardiology Pharmacologic stress test: report reviewed (normal myocardial perfusion no ischemia) Echo: report reviewed (06/08/2017 normal LV function no significant regurgitations) - Telemetry EKG Rhythm: Sinus Bradycardia (no pauses or afib noted for 36 hours)
--- NOTE | 2017-06-10 13:33 | Discharge Summary ---
Providers - Providers Date of Admission: 06/08/17 10:42 Date of discharge: 06/10/17 Attending physician: MILES KAMARA 06/08/17 10:46 Consult to Physician [CONS] Routine Consulting Provider: JACOBO ABBOTT Reason For Exam: Chest pain Place consult to:: yes Notified:: y Phone number called:: yes Primary care physician: MOI LOVE Hospitalization Condition: Fair Hospital course: Patient is awake and alert No apparent distress No specific complaints [place] any chest pain or shortness of breath Cardiology note reviewed Echo shows normal LV function Carotid duplex shows less than 50% stenosis bilaterally MPI stress test shows no ischemia per review of Dr. Mast's note He has cleared the patient for discharge follow-up in his office in one week Also recommended outpatient neurology f/u Assessment: Chest pain VA ruled out with serial cardiac enzymes Be a stress test is normal Stable for discharge Syncope. Echo normal LV function Carotid Artery Doppler: Less than 50% stenosis Suspected vasovagal etiology secondary to bradycardia Bradycardia/SSS Extensive workup at [facility] Status post 1 month Holter monitor - 30 day event monitor was reviewed by cardiology and there were no significant events, so there is no indication for pacemaker placement Holding his home CCB Restart the patient on hydralazine and 25 mg 3 times daily and hold calcium channel jolanta until seen by his corrections officer and PCP Hypertension Continued on lisinopril Hyperlipidemia Continue Zocor Disposition: DC-30 STILL A PATIENT Time spent for discharge: 34 min Core Measure Documentation - Palliative Care Palliative Care/ Comfort Measures: Not Applicable - Core Measures Any of the following diagnoses?: none Exam - Constitutional Vitals: Temp Pulse Resp BP Pulse Ox 97.8 F 90 19 176/68 95 06/10/17 05:19 06/10/17 10:41 06/10/17 05:19 06/10/17 10:41 06/10/17 05:19 General appearance: Present: no acute distress - EENT Eyes: Present: PERRL, EOM intact ENT: hearing intact - Neck Neck: Present: supple, normal ROM - Respiratory Respiratory effort: normal Respiratory: bilateral: CTA - Cardiovascular Rhythm: regular Heart Sounds: Present: S1 & S2 - Extremities Extremities: No edema - Abdominal General gastrointestinal: Present: soft, non-tender. Absent: hepatomegaly, splenomegaly - Rectal Rectal Exam: deferred - Integumentary Integumentary: Present: clear - Musculoskeletal Musculoskeletal: strength equal bilaterally - Psychiatric Psychiatric: appropriate mood/affect - Neurologic Neurologic: no focal deficits Plan Activity: advance as tolerated Weight Bearing Status: Full Weight Bearing Diet: regular, low fat, low cholesterol, low salt Additional Instructions: Follow-up with neurology of his choice or can make an appointment with Dr. Hadley Follow up with: MOI LOVE MD [Primary Care Provider] - 3-5 Days PEARL AGUERO MD [Staff Physician] - 7 Days Forms: Accompanied Note Prescriptions: hydrALAZINE [Apresoline TAB] 25 mg PO Q8HR #90 tab
[2017-06-10 15:15] VITALS: BP 138/70
--- NOTE | 2017-06-10 21:27 | Treadmill Report ---
NUCLEAR PERFUSION STUDY REASON FOR STUDY: Chest pain and syncope. IMAGING PROTOCOL: The patient received 10 mCi of Technetium 99m Tetrofosmin for resting image and 28 mCi of Technetium 99m Tetrofosmin for stress imaging. The imaging for the whole procedure was completed 30-90 minutes following the initial injection of Technetium 99m tetrofosmin. The SPECT imaging in the 180 degree arc was performed in the right anterior oblique projection. Computerized reconstruction of the images was performed for analysis. IMAGING RESULTS: Normal cavity size from stress to rest. Normal distribution of radionuclide in the anterior, inferior, septal, and apical regions. Gated SPECT, EF is 69% with no wall motion abnormality. The patient infused Lexiscan with no EKG changes. SUMMARY: 1. Negative Lexiscan EKG. 2. Normal rest and stress myocardial perfusion scan. No significant stress ischemia. No wall motion abnormality. Gated SPECT, 69%. JOB# [id number] VRM/NTS
--- NOTE | 2017-06-20 13:48 | Vascular Lab Report ---
CAROTID DUPLEX STUDY: RIGHT PSVEDV CCA PROX:7513 CCA DIST:6512 ICA PROX:5115 ICA MID:6115 ICA DIST:4613 ECA: 93 VERT: 29 10 LEFT PSVEDV CCA PROX:9315 CCA DIST:8515 ICA PROX:3310 ICA MID:9927 ICA DIST:6719 ECA: 98 VERT: 39 9 REASON FOR EXAM: Syncope. COMMENTS ON THE RIGHT: Doppler frequency analysis is consistent with 16 to 49 percent diameter reduction of the internal carotid artery. Minimal amount of plaque is seen. The common carotid artery is patent. The external carotid artery is patent. The vertebral artery has antegrade flow. COMMENTS ON THE LEFT: Doppler frequency analysis is consistent with 16 to 49 percent diameter reduction of the internal carotid artery. Minimal amount of plaque is seen. The common carotid artery is patent. The external carotid artery is patent. The vertebral artery has antegrade flow. IMPRESSION: Less than 50% diameter reduction in the internal carotid arteries bilaterally.
== END 2017-06-10 16:12 | disposition home or self-care (01) | DRG 310 ==
LOC: ED 03:59 → 4A 10:42
PROVIDERS: ADMIT Internal Medicine; ATTEND Internal Medicine
DX: I49.5 Sick sinus syndrome (principal); R55 Syncope and collapse; I10 Essential (primary) hypertension; E78.5 Hyperlipidemia, unspecified; R07.89 Other chest pain; Z90.49 Acquired absence of other specified parts of digestive tract; Z85.46 Personal history of malignant neoplasm of prostate
CPT/HCPCS: 36415; 71020; 78452; 80048; 81001; 84484; 85025; 85379; 93005; 93010; 93017; 93306; 93880; 96374; A9270-GY; A9502; J1650; J2405; J2785

== ENCOUNTER 2018-09-14 17:03 | Inpatient (IN) | payer MEDICARE ==
--- NOTE | 2018-09-14 17:45 | Emergency Department Report ---
HPI - General Chief Complaint: Chest Pain Time Seen by Provider: 09/14/18 17:12 - HPI HPI: 73-year-old -[place] male presents to the emergency department via EMS from home after having some type of unresponsive or syncopal episode. The daughter, who is bedside, says that she heard some type of a "boom" that sounded like someone falling inside the bathroom. She realized that it was her father and went to check on him. She was unable to open the door at first and saw his hand on the ground underneath the door. She was eventually able to push her way in and found him unconscious and unresponsive but still breathing and with a pulse. EMS was called and they brought him in to be seen. Apparently he regained consciousness or normal mentation in route. EMS had concern for the EKG that was done in route and he was apparently given a sublingual nitroglycerin. Currently the patient is awake and alert and denies any chest pain, back pain but does complain of some generalized weakness and fatigue, as well as some mild shortness of breath. He has a past medical history of seizures, hypertension, high cholesterol and a remote history of prostate cancer. His primary care physician is Dr. Jailene Charles. The daughter says that he lays in bed and sleeps for about 18 hours a day. However he is able to ambulate to use the bathroom and occasionally get something to eat. ED Past Medical Hx - Past Medical History Previous Medical History?: Yes Hx Hypertension: Yes Hx Seizures: Yes Hx HIV: No Additional medical history: high cholesterol - Surgical History Past Surgical History?: Yes Hx Cholecystectomy: Yes Additional Surgical History: hernia repair, prostate seed implant - Social History Smoking Status: Never Smoker Substance Use Type: None - Medications Home Medications: Home Medications Medication Instructions Recorded Confirmed Last Taken Type Aspirin [Aspirin TAB] 325 mg PO DAILY #30 tablet 07/14/17 Unknown Rx AtorvaSTATin [Lipitor] 20 mg PO QHS #30 tablet 07/14/17 Unknown Rx Bisacodyl [Dulcolax suppos] 10 mg PA QDAY PRN supp.rect 07/14/17 Unknown Rx Divalproex [Jesse Diaz] 250 mg PO BID #60 tablet 07/14/17 Unknown Rx HYDROcodone/APAP 5-325 [[place] 1 each PO Q6HR PRN #20 tablet 01/27/18 Unknown Rx 5/325] Lisinopril [Zestril TAB] 20 mg PO QDAY #30 tablet 07/14/17 Unknown Rx Pantoprazole [Protonix TAB] 40 mg PO QDAY #30 tablet 07/14/17 Unknown Rx hydrALAZINE [Apresoline TAB] 25 mg PO Q8HR #90 tab 07/14/17 Unknown Rx ED Review of Systems ROS: Stated complaint: CHEST PAIN Other details as noted in HPI Comment: All other systems reviewed and negative Constitutional: weakness. denies: chills, fever Eyes: denies: eye pain, vision change ENT: denies: ear pain, throat pain Respiratory: shortness of breath. denies: cough Cardiovascular: syncope. denies: chest pain Gastrointestinal: denies: abdominal pain, vomiting Genitourinary: denies: dysuria, frequency Musculoskeletal: denies: back pain, arthralgia Skin: denies: rash, lesions Neurological: weakness. denies: headache Physical Exam - Physical Exam Vital Signs: Vital Signs 09/14/18 17:11 Temperature 98.2 F Pulse Rate 58 L Respiratory 16 Rate Blood Pressure 130/60 O2 Sat by Pulse 98 Oximetry Physical Exam: GENERAL: The patient is well-developed well-nourished. HEENT: Normocephalic. Atraumatic. Patient has moist mucous membranes. EYES: Extraocular motions are intact. Pupils are equal and reactive to light bilaterally. NECK: Supple. Trachea is midline. CHEST/LUNGS: Clear to auscultation. There is no respiratory distress noted. HEART/CARDIOVASCULAR: Regular. There is no tachycardia. There is no obvious murmur. ABDOMEN: Abdomen is soft, nontender. Patient has normal bowel sounds. There is no abdominal distention. SKIN: Skin is warm and dry. NEURO: The patient is awake, alert, and cooperative. No lateralizing or sensory deficits. Patient has bilateral distal upper extremity tremors. The patient has normal speech. MUSCULOSKELETAL: There is no tenderness or deformity. There is no evidence of acute injury. ED Course Vital Signs 09/14/18 17:11 Temperature 98.2 F Pulse Rate 58 L Respiratory 16 Rate Blood Pressure 130/60 O2 Sat by Pulse 98 Oximetry ED Medical Decision Making - Lab Data Result diagrams: 09/14/18 18:32 09/14/18 18:32 - EKG Data -: EKG Interpreted by Me EKG shows normal: sinus rhythm, axis, intervals, QRS complexes, ST-T waves Rate: normal - EKG Data When compared to previous EKG there are: previous EKG unavailable Interpretation: normal EKG - Radiology Data Radiology results: report reviewed, image reviewed interpreted by me: Chest x-ray does not show any pneumothorax, pleural effusion, pneumonia or obvious focal consolidation. PROCEDURE: CT ANGIO CHEST TECHNIQUE: Computerized tomographic angiography of the chest was performed after the IV injection of iodinated nonionic contrast including image processing. The image data was postprocessed using 2-dimensional multiplanar reformatted (MPR) and 3-dimensional (MIP and/or volume rendered) techniques. Automated exposure control, adjustment of mA and/or kV according to patient size, or iterative reconstruction dose optimization techniques were utilized. CT DOSE LENGTH PRODUCT: 921.3 mGycm HISTORY: Syncope, elevated dimer COMPARISONS: None . FINDINGS: Bilateral pulmonary arteries and branches demonstrate normal opacification without filling defects. Bilateral hilar structures are within normal limits. Bilateral lungs are free of infiltrates or mass lesions. Pleural spaces are clear. Aorta is of normal caliber without evidence of dissection. There is no lymphadenopathy. Thyroid demonstrates normal size and density. A cystic lesion measuring 1.7 cm is noted in the visualized to the lower portion of right kidney most likely representing a simple cyst. Multiple sclerotic densities measuring about 4 mm are noted in the thoracic vertebral bodies. Vertebral height is normal. IMPRESSION: No evidence of pulmonary embolism No acute pulmonary process Multiple small sclerotic densities of vertebral bodies are of nonspecific nature. Radionuclide scan may be recommended to rule out metastatic disease. This document is electronically signed by Vadim Pedersen MD., September 14 2018 10:27:57 PM ET Transcribed By: [facility] [place] Dictated By: VADIM PEDERSEN Electronically Authenticated By: VADIM PEDERSEN Signed Date/Time: 09/14/18 540 PROCEDURE: CT HEAD/BRAIN WO CON HISTORY: syncope, unresponsive episode FINDINGS: Unenhanced CT of the brain was performed and demonstrates no acute intracranial hemorrhage, extra-axial fluid collection, midline shift or mass effect. The ventricles and basal cisterns are not effaced. No acute infarct is seen. MRI may be considered if patient has persistent symptomatology. The mastoid air cells and middle ears appear clear. There is no evidence of acute sinusitis. IMPRESSION: No acute intracranial hemorrhage This document is electronically signed by Car Morales MD., September 14 2018 07:57:06 PM ET Transcribed By: ANDRES Dictated By: CAR MORALES MD Electronically Authenticated By: CAR MORALES MD Signed Date/Time: 09/14/181958 - Medical Decision Making Patient presents to the emergency department after having some type of syncopal episode at home. He complained of some previous chest pain. Based on the fact that there was about a 20-30 minute unresponsive episode or alteration of mental status, along with his history of previous seizures, I think there is a good chance that he had a seizure. He was loaded with some Keppra as he takes [address] of the head did not show any bleed, shift, mass, ischemia, or any other acute process. Patient's labs were mostly unremarkable but he did have a slightly elevated and equivocal d-dimer. For this reason a CT angiography of the chest was done that does not show any pulmonary embolism, dissection, aneurysm or any other acute process. The patient has remained awake throughout his ED course mostly sits to her nonverbal and glassy eyed. He will be admitted to the hospital for further evaluation and treatment and was accepted for admission by the hospitalist, Dr. Webb. - Differential Diagnosis Seizure, Vasovagal, TIA, Orthostatic hypotension Critical Care Time: No Critical care attestation.: If time is entered above; I have spent that time in minutes in the direct care of this critically ill patient, excluding procedure time. ED Disposition Clinical Impression: Unresponsive episode Syncope Qualifiers: Syncope type: unspecified Qualified Code(s): R55 - Syncope and collapse Disposition: OP ADMIT IP TO THIS HOSP Is pt being admited?: Yes Condition: Fair Time of Disposition: 00:05
--- NOTE | 2018-09-14 19:02 | XRay Report ---
PROCEDURE: XR CHEST 1V AP TECHNIQUE: Chest radiograph , single frontal view. HISTORY: Chest Pain COMPARISONS: None . FINDINGS: Heart: Normal. Mediastinum/Vessels: Mild unfolding of aorta is likely age-related. Lungs/Pleural space: Small calcified granuloma in the left lateral lung base is noted overlying the posterior left seventh rib laterally. Bony thorax: No acute osseous abnormality. Life support devices: None. IMPRESSION: No acute cardiopulmonary abnormality. This document is electronically signed by Trinidad Douglass MD., September 14 2018 07:00:56 PM ET
[2018-09-14 19:23] LABS: Partial Thromboplastin Time 25.4 Sec. (24.2-36.6)
[2018-09-14 19:26] LABS: Hematocrit 44.7 % (35.5-45.6); Hemoglobin 15.2 gm/dl (11.8-15.2); Mean Corpuscular HGB Conc 34 % (32-34); Mean Corpuscular Volume 93 fl (84-94); Platelet Count 182 K/mm3 (140-440); Red Cell Distribution Width 13.2 % (13.2-15.2)
[2018-09-14 19:27] LABS: Basophils % (Auto) 0.5 % (0.0-1.8); Eosinophils % (Auto) 0.3 % (0.0-4.3); Lymphocytes % (Auto) 8.7 % (13.4-35.0); Monocytes % (Auto) 7.3 % (0.0-7.3)
[2018-09-14 19:28] LABS: Basophils # (Auto) 0.1 K/mm3 (0.0-0.1); Lymphocytes # (Auto) 0.9 K/mm3 (1.2-5.4); Monocytes # (Auto) 0.8 K/mm3 (0.0-0.8)
[2018-09-14 19:35] LABS: Alanine Aminotransferase 17 units/L (7-56); Albumin 3.7 g/dL (3.9-5); BUN/Creatinine Ratio 65; Blood Urea Nitrogen 13 mg/dL (9-20); Hemolysis Index 0
--- NOTE | 2018-09-14 19:59 | Cat Scan Report ---
PROCEDURE: CT HEAD/BRAIN WO CON HISTORY: syncope, unresponsive episode FINDINGS: Unenhanced CT of the brain was performed and demonstrates no acute intracranial hemorrhage, extra-axial fluid collection, midline shift or mass effect. The ventricles and basal cisterns are no t effaced. No acute infarct is seen. MRI may be considered if patient has persistent symptomatology. The mastoid air cells and middle ears appear clear. There is no evidence of acute sinusitis. IMPRESSION: No acute intracranial hemorrhage This document is electronically signed by Car Morales MD., September 14 2018 07:57:06 PM ET
[2018-09-14 20:17] LABS: Calcium 9.2 mg/dL (8.4-10.2)
[2018-09-14 20:20] LABS: INR 1.05 (0.87-1.13)
[2018-09-14] MEDS ORDERED: NACL 0.9% 500 ML 500 ML IV ONE (20:33)
[2018-09-14] MEDS ORDERED: KEPPRA 1,000 MG/NS 0.75% 100ML 1,000 MG/100 ML BAG IV ONE (22:12)
--- NOTE | 2018-09-14 22:30 | Cat Scan Report ---
PROCEDURE: CT ANGIO CHEST TECHNIQUE: Computerized tomographic angiography of the chest was performed after the IV injection of iodinated nonionic contrast including image processing. The image data was postprocessed using 2-di mensional multiplanar reformatted (MPR) and 3-dimensional (MIP and/or volume rendered) techniques. Au tomated exposure control, adjustment of mA and/or kV according to patient size, or iterative reconstr uction dose optimization techniques were utilized. CT DOSE LENGTH PRODUCT: 921.3 mGycm HISTORY: Syncope, elevated dimer COMPARISONS: None . FINDINGS: Bilateral pulmonary arteries and branches demonstrate normal opacification without filling defects. B ilateral hilar structures are within normal limits. Bilateral lungs are free of infiltrates or mass l esions. Pleural spaces are clear. Aorta is of normal caliber without evidence of dissection. There is no lymphadenopathy. Thyroid demonstrates normal size and density. A cystic lesion measuring 1.7 cm i s noted in the visualized to the lower portion of right kidney most likely representing a simple cyst . Multiple sclerotic densities measuring about 4 mm are noted in the thoracic vertebral bodies. Verte bral height is normal. IMPRESSION: No evidence of pulmonary embolism No acute pulmonary process Multiple small sclerotic densities of vertebral bodies are of nonspecific nature. Radionuclide scan m ay be recommended to rule out metastatic disease. This document is electronically signed by Wing Pedersen MD., September 14 2018 10:27:57 PM ET
[2018-09-14] MEDS ORDERED: ZOFRAN IV PRN (23:16)
[2018-09-14] MEDS ORDERED: TYLENOL PO PRN (23:16)
[2018-09-14] MEDS ORDERED: SODIUM CHLORIDE FLUSH SYRINGE 10 ML IV PRN (23:16)
[2018-09-14] MEDS ORDERED: MILK OF MAGNESIA PO PRN (23:16)
--- NOTE | 2018-09-14 23:55 | History and Physical Report ---
History of Present Illness Date of examination: 09/14/18 Date of admission: 09/14/18 23:16 Chief complaint: He passed out per the patient's daughter History of present illness: Patient is a 73-year-old -L[place]anese male with history of seizure disorder and recurrent syncope who was brought to the ED via EMS on account of a syncopal episode. History was obtained from both the patient and the daughter who was at the bedside. She said that she heard some type of a "boom" that sounded like someone falling inside the bathroom. She realized that it was her father and went to check on him. She was unable to open the door at first, but was able to see his hand on the ground from underneath the door. She was eventually able to push her way in and found him on the ground unconscious and unresponsive. EMS was called and they brought him to the ED. The episode lasted about 15 to 20 minutes. He had associated urinary and fecal incontinence but no reported witnessed seizure activity. The daughter also reported that the patient has history of low heart rates sometimes in the 40s. Discussion for pacemaker placement has been held in the past but he eventually did not get it placed. Past History Past Medical History: hypertension, hyperlipidemia, other (seizure disorder, recurring syncope, prostate cancer, chronic bradycardia, Tremors, dementia) Past Surgical History: cholecystectomy, hernia repair, Other (prostate seed implants) Social history: no significant social history (no history of tobacco, alcohol or illicit drug use) Family history: other (reviewed with the daughter and noncontributory) Medications and Allergies Allergies Allergy/AdvReac Type Severity Reaction Status Date / Time No Known Allergies Allergy Verified 11/06/13 16:30 Home Medications Medication Instructions Recorded Confirmed Last Taken Type Aspirin [Aspirin TAB] 325 mg PO DAILY #30 tablet 07/14/17 Unknown Rx AtorvaSTATin [Lipitor] 20 mg PO QHS #30 tablet 07/14/17 Unknown Rx Bisacodyl [Dulcolax suppos] 10 mg [place] QDAY PRN supp.rect 07/14/17 Unknown Rx Divalproex [Jesse Diaz] 250 mg PO BID #60 tablet 07/14/17 Unknown Rx HYDROcodone/APAP 5-325 [Cl[place] 1 each PO Q6HR PRN #20 tablet 07/14/17 Unknown Rx 5/325] Lisinopril [Zestril TAB] 20 mg PO QDAY #30 tablet 07/14/17 Unknown Rx Pantoprazole [Protonix TAB] 40 mg PO QDAY #30 tablet 07/14/17 Unknown Rx hydrALAZINE [Apresoline TAB] 25 mg PO Q8HR #90 tab 07/14/17 Unknown Rx Active Meds: Active Medications Acetaminophen (Tylenol) 650 mg PO Q4H PRN PRN Reason: Pain MILD(1-3)/Fever >100.5/BATES Acetaminophen/Hydrocodone Bitart ([place] 5/325) 1 each PO Q4H PRN PRN Reason: Pain, Moderate (4-6) Enoxaparin Sodium (Lovenox) 40 mg SUB-Q QDAY VERONIKA Sodium Chloride (Nacl 0.9% 1000 Ml) 1,000 mls @ 75 mls/hr IV DIRECT VERONIKA Levetiracetam 1,000 mg/ Sodium (Chloride) 110 mls @ 400 mls/hr IV Q12HR VERONIKA Magnesium Hydroxide (Milk Of Magnesia) 30 ml PO Q4H PRN PRN Reason: Constipation Ondansetron HCl (Zofran) 4 mg IV Q8H PRN PRN Reason: Nausea And Vomiting Sodium Chloride (Sodium Chloride Flush Syringe 10 Ml) 10 ml IV BID VERONIKA Sodium Chloride (Sodium Chloride Flush Syringe 10 Ml) 10 ml IV PRN PRN PRN Reason: LINE FLUSH Review of Systems All systems: negative (except as documented in the HPI, all other systems were reviewed and negative) Exam - Constitutional Vitals: Temp Pulse Resp BP Pulse Ox 98.1 F 51 L 16 139/56 99 09/14/18 19:13 09/14/18 22:30 09/14/18 22:30 09/14/18 21:30 09/14/18 21:30 General appearance: Present: no acute distress, well-nourished - EENT Eyes: Present: PERRL, EOM intact ENT: hearing intact, clear oral mucosa - Neck Neck: Present: supple, normal ROM - Respiratory Respiratory effort: normal Respiratory: bilateral: CTA - Cardiovascular Rhythm: regular (bradycardia) Heart Sounds: Present: S1 & S2. Absent: rub, click - Extremities Extremities: pulses symmetrical, No edema Peripheral Pulses: within normal limits - Abdominal General gastrointestinal: Present: soft, tender (generalized tenderness), non- distended, normal bowel sounds Male genitourinary: Present: deferred - Integumentary Integumentary: Present: clear, warm, dry - Musculoskeletal Musculoskeletal: gait normal, strength equal bilaterally - Psychiatric Psychiatric: appropriate mood/affect, intact judgment & insight - Neurologic Neurologic: CNII-XII intact, moves all extremities Results - Labs CBC & Chem 7: 09/14/18 18:32 09/14/18 18:32 Labs: Laboratory Last Values WBC 10.3 K/mm3 (4.5-11.0) 09/14/18 18:32 RBC 4.80 M/mm3 (3.65-5.03) 09/14/18 18:32 Hgb 15.2 gm/dl (11.8-15.2) 09/14/18 18:32 Hct 44.7 % (35.5-45.6) 09/14/18 18:32 MCV 93 fl (84-94) 09/14/18 18:32 MCH 32 pg (28-32) 09/14/18 18:32 MCHC 34 % (32-34) 09/14/18 18:32 RDW 13.2 % (13.2-15.2) 09/14/18 18:32 Plt Count 182 K/mm3 (140-440) 09/14/18 18:32 Lymph % (Auto) 8.7 % (13.4-35.0) L 09/14/18 18:32 [place] % (Auto) 7.3 % (0.0-7.3) 09/14/18 18:32 Eos % (Auto) 0.3 % (0.0-4.3) 09/14/18 18:32 Baso % (Auto) 0.5 % (0.0-1.8) 09/14/18 18:32 Lymph # 0.9 K/mm3 (1.2-5.4) L 09/14/18 18:32 Henderson # 0.8 K/mm3 (0.0-0.8) 09/14/18 18:32 Eos # 0.0 K/mm3 (0.0-0.4) 09/14/18 18:32 Baso # 0.1 K/mm3 (0.0-0.1) 09/14/18 18:32 Seg Neutrophils % 83.2 % (40.0-70.0) H 09/14/18 18:32 Seg Neutrophils # 8.6 K/mm3 (1.8-7.7) H 09/14/18 18:32 PT 14.3 Sec. (12.2-14.9) 09/14/18 18:32 INR 1.05 (0.87-1.13) 09/14/18 18:32 APTT 25.4 Sec. (24.2-36.6) 09/14/18 18:32 D-Dimer 250.09 ng/mlDDU (0-234) H 09/14/18 18:32 Sodium 138 mmol/L (137-145) 09/14/18 18:32 Potassium 4.8 mmol/L (3.6-5.0) 09/14/18 18:32 Chloride 103.4 mmol/L (98-107) 09/14/18 18:32 Carbon Dioxide 21 mmol/L (22-30) L 09/14/18 18:32 Anion Gap 18 mmol/L 09/14/18 18:32 BUN 13 mg/dL (9-20) 09/14/18 18:32 Creatinine < 0.2 mg/dL (0.8-1.5) L 09/14/18 18:32 Estimated GFR > 60 ml/min 09/14/18 18:32 BUN/Creatinine Ratio 65 % 09/14/18 18:32 Glucose 107 mg/dL (75-100) H 09/14/18 18:32 Calcium 9.2 mg/dL (8.4-10.2) 09/14/18 18:32 Total Bilirubin 0.60 mg/dL (0.1-1.2) 09/14/18 18:32 AST 26 units/L (5-40) 09/14/18 18:32 ALT 17 units/L (7-56) 09/14/18 18:32 Alkaline Phosphatase 85 units/L (35-129) 09/14/18 18:32 Total Creatine Kinase 119 units/L (55-170) 09/14/18 18:32 Troponin T < 0.010 ng/mL (0.00-0.029) 09/14/18 21:47 Total Protein 6.6 g/dL (6.3-8.2) 09/14/18 18:32 Albumin 3.7 g/dL (3.9-5) L 09/14/18 18:32 Albumin/Globulin Ratio 1.3 % 09/14/18 18:32 TSH 0.976 mlU/mL (0.270-4.200) 09/14/18 18:32 Valproic Acid < 2.8 ug/mL (50-100) L 09/14/18 18:32 Assessment and Plan Assessment and plan: Syncope and collapse -Probably secondary to bradycardia versus seizure activity -We'll continue serial troponin level and EKG monitoring -Carotid duplex and echocardiogram for further evaluation -Cardiology and neurology consulted Seizure disorder -Status post loading dose with Keppra -Continue IV Keppra Generalized abdominal pain status post fall -CT abdomen/pelvis for further evaluation Sclerotic densities of the thoracic vertebral bodies per imaging -We'll order a bone scan to assess for metastases due to his history of prostate cancer Metabolic acidosis -On IV fluid, will monitor bicarbonate level Elevated d-dimer -CTA chest negative for acute PE History of tremors of unknown etiology -Neurology to evaluate Dementia, stable Hyperlipidemia -Continue statin Hypertension, controlled DVT prophylaxis with Lovenox Disposition: For discharge when medically stable Time spent: 38 minutes
[2018-09-15] MEDS: NORCO 5/325 PO PRN ×3 (01:50→16:30)
[2018-09-15] MEDS: NACL 0.9% 1000 ML 1,000 ML IV SCH ×2 (04:20→16:36)
[2018-09-15 04:31] LABS: Bilirubin,Urine NEG (Negative); Blood,Urine NEG (Negative); Color,Urine Yellow (Yellow); Mucus,Urine FEW /HPF; Protein,Urine <15 mg/dL mg/dL (Negative); Urobilinogen,Urine < 2.0 mg/dL (<2.0)
[2018-09-15 04:32] LABS: RBC,Urine < 1.0 /HPF (0.0-6.0)
[2018-09-15 07:56] LABS: BUN/Creatinine Ratio 13; Blood Urea Nitrogen 14 mg/dL (9-20); Calcium 8.7 mg/dL (8.4-10.2); Hemolysis Index 6
[2018-09-15] MEDS: SODIUM CHLORIDE FLUSH SYRINGE 10 ML IV SCH ×2 (09:41→21:21)
[2018-09-15] MEDS: LOVENOX SUB-Q SCH (09:41)
[2018-09-15] MEDS: KEPPRA 1,000 MG in NACL 0.9% 100 ML IV SCH ×2 (09:54→21:21)
--- NOTE | 2018-09-15 11:35 | Cat Scan Report ---
PROCEDURE: CT ABDOMEN PELVIS WO CON TECHNIQUE: Noncontrast CT of the abdomen and pelvis was performed. Axial images and coronal and sagit franchesca reformatted images were obtained. HISTORY: generalized abdominal pain post fall COMPARISON: None FINDINGS: There is some dependent atelectasis at the lung bases. The patient is status post cholecystectomy. Within the limitations of a noncontrast exam, the visualized liver, spleen, pancreas, adrenal glands demonstrate no significant abnormality. There is some residual contrast material within renal collecting systems and bladder from prior CTA o f the chest. There is a small nonobstructing left intrarenal calculus. There are aortoiliac atherosclerotic calcifications. There is no abdominal aortic aneurysm. There is no evidence for intestinal obstruction. The appendix is normal. There is no abnormal fluid collection seen. There is no free intraperitoneal air. Bladder is unremarkable. There are radiation seeds in the prostate gland. IMPRESSION: Small nonobstructing left intrarenal calculus. No acute abnormality seen. This document is electronically signed by Gretchen Moya MD., September 15 2018 11:33:12 AM ET
--- NOTE | 2018-09-15 11:52 | Progress Note ---
Subjective Date of service: 09/15/18 Interval history: see the ED note and suspect syncope caused by seizurwe as well syncope w/u ie ECHO i being reviewed CT of head is normal plan check EEG and MRI Thanks for the consult Objective - Vital Sign Vital Signs - 12hr 09/15/18 09/15/18 09/15/18 00:00 00:10 00:20 Temperature Pulse Rate 49 L 52 L 49 L Pulse Rate [ From Monitor] Respiratory 12 17 16 Rate Blood Pressure O2 Sat by Pulse 100 100 100 Oximetry 09/15/18 09/15/18 09/15/18 00:30 00:40 01:02 Temperature 98.3 F Pulse Rate 51 L 50 L 48 L Pulse Rate [ From Monitor] Respiratory 16 18 20 Rate Blood Pressure 160/60 O2 Sat by Pulse 100 100 96 Oximetry 09/15/18 08:00 Temperature Pulse Rate Pulse Rate [ 55 L From Monitor] Respiratory 24 Rate Blood Pressure O2 Sat by Pulse Oximetry - Laboratory Findings CBC and BMP: 09/14/18 18:32 09/15/18 06:58 Abnormal Lab Findings: Abnormal Labs 09/14/18 09/14/18 09/14/18 04:00 18:32 18:32 Lymph % (Auto) 8.7 L Lymph # 0.9 L Seg Neutrophils % 83.2 H Seg Neutrophils # 8.6 H D-Dimer 250.09 H Carbon Dioxide Creatinine Glucose Magnesium Albumin Ur Specific [place] 1.058 H Valproic Acid 09/14/18 09/14/18 09/15/18 18:32 18:32 06:58 Lymph % (Auto) Lymph # Seg Neutrophils % Seg Neutrophils # D-Dimer Carbon Dioxide 21 L Creatinine < 0.2 L Glucose 107 H Magnesium 2.40 H Albumin 3.7 L Ur Specific [place] Valproic Acid < 2.8 L
--- NOTE | 2018-09-15 12:44 | Vascular Lab Report ---
PROCEDURE: VL CAROTID DUPLEX BILAT TECHNIQUE: Carotid duplex Doppler ultrasound HISTORY: syncope COMPARISON: None FINDINGS: There is only a minimal amount of plaque seen on the right. There is a mild amount of atherosclerotic plaque left carotid bulb. There is no abnormal elevation of carotid flow velocity seen on the right or left. ICA/CCA velocity r atios are normal, 0.75, right and 0.62 on the left. These findings indicate no stenosis of hemodynami c significance. Specifically, findings indicate stenoses of less than 50%. Vertebral artery flow is antegrade but only. IMPRESSION: No evidence of a hemodynamically significant stenosis. This document is electronically signed by Gretchen Moya MD., September 15 2018 12:42:51 PM ET
--- NOTE | 2018-09-15 13:04 | Progress Note ---
Assessment and Plan Assessment and plan: --Syncope and collapse; Due to symptomatic bradycardia ,Fall precautions Syncope workup in progress Cardiology and neurology evaluation --Symptomatic bradycardia; hold beta blockers Cardiology evaluation, continuous cardiac monitoring --History of Seizure disorder Antiepileptic medications, neurology evaluation --Generalized abdominal pain status post fall CT abdomen/pelvis; no acute abnormalities noted --Sclerotic densities of the thoracic vertebral bodies per imaging check bone scan to evaluate for metastases, h/o prostate cancer --Metabolic acidosis; IV fluid, will monitor bicarbonate level --Elevated d-dimer CTA chest negative for acute PE, check lower extremity Doppler --History of tremors of unknown etiology Neurology to evaluate --Dementia, stable --Hyperlipidemia; Continue statin --Hypertension, controlled --DVT prophylaxis with Lovenox Narrative the patient closely and adjust management as needed Follow cardiology and neurology Evaluation Disposition: For discharge when medically stable Plan of care is reviewed with the patient and his nurse History Interval history: Patient seen and examined medical records reviewed Admitted with syncopal episode, noted to have symptomatic bradycardia Patient feels slightly better no new complaints Heart rate ranges between 46-59 No new episodes of syncope after admission Patient feels better no new complaints denies chest pain shortness of breath or dizziness Vital signs reviewed Hospitalist Physical - Constitutional Vitals: Temp Pulse Resp BP Pulse Ox 98.3 F 55 L 24 160/60 96 09/15/18 01:02 09/15/18 08:00 09/15/18 08:00 09/15/18 01:02 09/15/18 01:02 General appearance: Present: no acute distress, well-nourished - EENT Eyes: Present: PERRL, EOM intact - Neck Neck: Present: supple, normal ROM - Respiratory Respiratory effort: normal Respiratory: bilateral: diminished, negative: rales, rhonchi, wheezing - Cardiovascular Rhythm: regular Heart Sounds: Present: S1 & S2 - Extremities Extremities: no ischemia, No edema - Abdominal General gastrointestinal: soft, non-tender, non-distended, normal bowel sounds - Integumentary Integumentary: Present: clear, warm - Psychiatric Psychiatric: appropriate mood/affect, cooperative - Neurologic Neurologic: CNII-XII intact, moves all extremities Results - Labs CBC & Chem 7: 09/14/18 18:32 09/15/18 06:58 Labs: Laboratory Last Values WBC 10.3 K/mm3 (4.5-11.0) 09/14/18 18:32 RBC 4.80 M/mm3 (3.65-5.03) 09/14/18 18:32 Hgb 15.2 gm/dl (11.8-15.2) 09/14/18 18:32 Hct 44.7 % (35.5-45.6) 09/14/18 18:32 MCV 93 fl (84-94) 09/14/18 18:32 MCH 32 pg (28-32) 09/14/18 18:32 MCHC 34 % (32-34) 09/14/18 18:32 RDW 13.2 % (13.2-15.2) 09/14/18 18:32 Plt Count 182 K/mm3 (140-440) 09/14/18 18:32 Lymph % (Auto) 8.7 % (13.4-35.0) L 09/14/18 18:32 [place]age % (Auto) 7.3 % (0.0-7.3) 09/14/18 18:32 Eos % (Auto) 0.3 % (0.0-4.3) 09/14/18 18:32 Baso % (Auto) 0.5 % (0.0-1.8) 09/14/18 18:32 Lymph # 0.9 K/mm3 (1.2-5.4) L 09/14/18 18:32 Gage # 0.8 K/mm3 (0.0-0.8) 09/14/18 18:32 Eos # 0.0 K/mm3 (0.0-0.4) 09/14/18 18:32 Baso # 0.1 K/mm3 (0.0-0.1) 09/14/18 18:32 Seg Neutrophils % 83.2 % (40.0-70.0) H 09/14/18 18:32 Seg Neutrophils # 8.6 K/mm3 (1.8-7.7) H 09/14/18 18:32 PT 14.3 Sec. (12.2-14.9) 09/14/18 18:32 INR 1.05 (0.87-1.13) 09/14/18 18:32 APTT 25.4 Sec. (24.2-36.6) 09/14/18 18:32 D-Dimer 250.09 ng/mlDDU (0-234) H 09/14/18 18:32 Sodium 140 mmol/L (137-145) 09/15/18 06:58 Potassium 4.6 mmol/L (3.6-5.0) 09/15/18 06:58 Chloride 106.1 mmol/L (98-107) 09/15/18 06:58 Carbon Dioxide 24 mmol/L (22-30) 09/15/18 06:58 Anion Gap 15 mmol/L 09/15/18 06:58 BUN 14 mg/dL (9-20) 09/15/18 06:58 Creatinine 1.1 mg/dL (0.8-1.5) D 09/15/18 06:58 Estimated GFR > 60 ml/min 09/15/18 06:58 BUN/Creatinine Ratio 13 % 09/15/18 06:58 Glucose 87 mg/dL (75-100) 09/15/18 06:58 Calcium 8.7 mg/dL (8.4-10.2) 09/15/18 06:58 Magnesium 2.40 mg/dL (1.7-2.3) H 09/15/18 06:58 Total Bilirubin 0.60 mg/dL (0.1-1.2) 09/14/18 18:32 AST 26 units/L (5-40) 09/14/18 18:32 ALT 17 units/L (7-56) 09/14/18 18:32 Alkaline Phosphatase 85 units/L (35-129) 09/14/18 18:32 Total Creatine Kinase 119 units/L (55-170) 09/14/18 18:32 Troponin T < 0.010 ng/mL (0.00-0.029) 09/14/18 23:08 Total Protein 6.6 g/dL (6.3-8.2) 09/14/18 18:32 Albumin 3.7 g/dL (3.9-5) L 09/14/18 18:32 Albumin/Globulin Ratio 1.3 % 09/14/18 18:32 TSH 0.976 mlU/mL (0.270-4.200) 09/14/18 18:32 Urine Color Yellow (Yellow) 09/14/18 04:00 Urine Turbidity Clear (Clear) 09/14/18 04:00 Urine pH 5.0 (5.0-7.0) 09/14/18 04:00 Ur Specific [place] 1.058 (1.003-1.030) H 09/14/18 04:00 Urine Protein <15 mg/dl mg/dL (Negative) 09/14/18 04:00 Urine Glucose (UA) Neg mg/dL (Negative) 09/14/18 04:00 Urine Ketones Neg mg/dL (Negative) 09/14/18 04:00 Urine Blood Neg (Negative) 09/14/18 04:00 Urine Nitrite Neg (Negative) 09/14/18 04:00 Urine Bilirubin Neg (Negative) 09/14/18 04:00 Urine Urobilinogen < 2.0 mg/dL (<2.0) 09/14/18 04:00 Ur Leukocyte Esterase Neg (Negative) 09/14/18 04:00 Urine WBC (Auto) 1.0 /HPF (0.0-6.0) 09/14/18 04:00 Urine RBC (Auto) < 1.0 /HPF (0.0-6.0) 09/14/18 04:00 U Epithel Cells (Auto) < 1.0 /HPF (0-13.0) 09/14/18 04:00 Urine Mucus Few /HPF 09/14/18 04:00 Valproic Acid < 2.8 ug/mL (50-100) L 09/14/18 18:32 Active Medications - Current Medications Current Medications: Generic Name Dose Route Start Last Admin Trade Name Freq PRN Reason Stop Dose Admin Acetaminophen 650 mg 09/14/18 23:16 Tylenol PO Q4H PRN Pain MILD(1-3)/Fever >100.5/BATES Acetaminophen/Hydrocodone Bitart 1 each 09/14/18 23:16 09/15/18 09:06 Foster 5/325 PO 1 each Q4H PRN Administration Pain, Moderate (4-6) Enoxaparin Sodium 40 mg 09/15/18 10:00 09/15/18 09:41 Lovenox SUB-Q 40 mg QDAY VERONIKA Administration Sodium Chloride 1,000 mls @ 75 mls/hr 09/14/18 23:45 09/15/18 04:20 Nacl 0.9% 1000 Ml IV 75 mls/hr DIRECT VERONIKA Administration Levetiracetam 1,000 mg/ Sodium 110 mls @ 400 mls/hr 09/15/18 10:00 09/15/18 09:54 Chloride IV 400 mls/hr Q12HR VERONIKA Administration Magnesium Hydroxide 30 ml 09/14/18 23:16 Milk Of Magnesia PO Q4H PRN Constipation Ondansetron HCl 4 mg 09/14/18 23:16 Zofran IV Q8H PRN Nausea And Vomiting Sodium Chloride 10 ml 09/15/18 10:00 09/15/18 09:41 Sodium Chloride Flush Syringe 10 Ml IV Not Given BID VERONIKA Sodium Chloride 10 ml 09/14/18 23:16 Sodium Chloride Flush Syringe 10 Ml IV PRN PRN LINE FLUSH
--- NOTE | 2018-09-15 16:58 | Event Note ---
Date: 09/15/18 Cardiology note dictated. #1 syncope with loss of bowel and bladder control etiology uncertain #2 sinus bradycardia #3 hypertension #4 hyperlipidemia #5 convulsive disorder Patient is seen for cardiac evaluation. His heart rate is remaining around 50s with stable blood pressure. We will continue monitoring closely. Thank you Dr. AZUL Cutler
--- NOTE | 2018-09-16 00:41 | Consultation ---
CARDIOLOGY EVALUATION HISTORY OF PRESENT ILLNESS: The patient is a 74-year-old gentleman, who apparently was taking a bath and subsequently collapsed and lost bowel and bladder control and was brought to the Emergency Room and is currently admitted for further management. The patient denies having any chest pain, difficulty in breathing or palpitations. Before this episode, he had about 2 or 3 episodes over a period of last year or so. The patient is noted to have sinus bradycardia in the low 50s and there is some concern whether the bradycardia has any causal influence on these episodes. The patient is known to have had convulsive disorder and has been on antiplatelet medications. The patient had a CT chest, which was negative for pulmonary embolism. The patient has a history of dementia, longstanding history of hypertension and hyperlipidemia. No previous myocardial infarction or congestive heart failure. About 2 years ago, he was evaluated here with a stress test and echo and both were noted to be satisfactory. REVIEW OF SYSTEMS: HEAD, EYES, EARS, NOSE AND THROAT: No symptoms. ENDOCRINE: No symptoms. GASTROINTESTINAL: No abdominal pain, nausea or vomiting. Bowel habits have been regular. GENITOURINARY: No symptoms. LOCOMOTOR: The patient is known to have had prostatic cancer. CENTRAL NERVOUS SYSTEM: The patient has a history of dementia. PHYSICAL EXAMINATION: GENERAL: Adult gentleman, well built and nourished, in no distress, pleasant and cooperative. HEAD, EYES, EARS, NOSE AND THROAT: Unremarkable. NECK: Supple. No thyromegaly. Both carotids are palpable and equal. No bruits are noted. CHEST: Symmetrical. LUNGS: Essentially clear. HEART: S1 and S2 are heard well. No S3. ABDOMEN: Soft, nontender, no hepatosplenomegaly. Peristaltic sounds are heard well. EXTREMITIES: No edema or calf tenderness. LABORATORY DATA: EKG, sinus bradycardia. LABORATORY DATA: WBC 10.3, hemoglobin 15.2, hematocrit 44.7. Sodium 140, potassium 4.6, BUN 14, creatinine 1.1, magnesium 2.4. TSH 0.97. Valproic acid is less than 2.8. IMPRESSION: 1. Syncope with loss of bladder and bowel control, etiology uncertain? The patient is seen for cardiac evaluation. At present, he is stable. Over a period of time, he had 2 or 3 episodes of syncope, etiology of this is somewhat puzzling. Heart rate has not been documented to be significantly lower than the 50s. He had similar heart rate even when he was evaluated a couple of years ago, at which time his stress and echo were noted to be negative. We will obtain an echocardiogram for further cardiac evaluation. 2. Possible convulsive disorder. Neurology evaluation is pending. 3. Sinus bradycardia. 4. Hypertension. 5. Hyperlipidemia. PLAN: The patient was seen for cardiac evaluation. Clinically, cardiac status is stable. The patient will be monitored and followed closely with you. Thank you, JOB# [id number] THELMA/NTS
[2018-09-16] MEDS: NACL 0.9% 1000 ML 1,000 ML IV SCH (04:56)
--- NOTE | 2018-09-16 08:50 | Progress Note ---
Assessment and Plan Assessment and plan: --Symptomatic bradycardia; heart rate ranges between 43-54 hold beta blockers, Cardiology following , possible pacemaker if needed Supportive care --Syncope and collapse; Due to symptomatic bradycardia ,Fall precautions CT head negative, carotid Doppler no significant stenosis Cardiology and neurology following, follow echo --History of Seizure disorder Antiepileptic medications, neurology evaluation --Generalized abdominal pain status post fall CT abdomen/pelvis; no acute abnormalities noted --Sclerotic densities of the thoracic vertebral bodies per imaging check bone scan to evaluate for metastases, h/o prostate cancer --Metabolic acidosis; IV fluid, will monitor bicarbonate level --Elevated d-dimer CTA chest negative for acute PE, check lower extremity Doppler --History of tremors of unknown etiology Neurology to evaluate --Dementia, stable --Hyperlipidemia; Continue statin --Hypertension, controlled --DVT prophylaxis with Lovenox Narrative the patient closely and adjust management as needed Follow cardiology and neurology Evaluation Disposition: For discharge when medically stable Plan of care is reviewed with the patient and his nurse History Interval history: Patient seen and examined medical records reviewed No new events reported by the nursing staff Patient has persistent bradycardia The possible heart block Complains of generalized weakness and dizziness Vital signs noted Hospitalist Physical - Constitutional Vitals: Temp Pulse Resp BP Pulse Ox 98.6 F 43 L 20 157/68 100 09/16/18 02:44 09/16/18 04:05 09/16/18 02:44 09/16/18 02:44 09/16/18 02:52 General appearance: Present: no acute distress, well-nourished - EENT Eyes: Present: PERRL, EOM intact - Neck Neck: Present: supple, normal ROM - Respiratory Respiratory effort: normal Respiratory: bilateral: diminished, negative: rales, rhonchi, wheezing - Cardiovascular Rhythm: regular Heart Sounds: Present: S1 & S2 (bradycardia) - Extremities Extremities: no ischemia, No edema - Abdominal General gastrointestinal: soft, non-tender, non-distended, normal bowel sounds - Integumentary Integumentary: Present: clear, warm - Psychiatric Psychiatric: appropriate mood/affect - Neurologic Neurologic: CNII-XII intact, moves all extremities Results - Labs CBC & Chem 7: 09/14/18 18:32 09/15/18 06:58 Labs: Laboratory Last Values WBC 10.3 K/mm3 (4.5-11.0) 09/14/18 18:32 RBC 4.80 M/mm3 (3.65-5.03) 09/14/18 18:32 Hgb 15.2 gm/dl (11.8-15.2) 09/14/18 18:32 Hct 44.7 % (35.5-45.6) 09/14/18 18:32 MCV 93 fl (84-94) 09/14/18 18:32 MCH 32 pg (28-32) 09/14/18 18:32 MCHC 34 % (32-34) 09/14/18 18:32 RDW 13.2 % (13.2-15.2) 09/14/18 18:32 Plt Count 182 K/mm3 (140-440) 09/14/18 18:32 Lymph % (Auto) 8.7 % (13.4-35.0) L 09/14/18 18:32 [place] % (Auto) 7.3 % (0.0-7.3) 09/14/18 18:32 Eos % (Auto) 0.3 % (0.0-4.3) 09/14/18 18:32 Baso % (Auto) 0.5 % (0.0-1.8) 09/14/18 18:32 Lymph # 0.9 K/mm3 (1.2-5.4) L 09/14/18 18:32 [place] # 0.8 K/mm3 (0.0-0.8) 09/14/18 18:32 Eos # 0.0 K/mm3 (0.0-0.4) 09/14/18 18:32 Baso # 0.1 K/mm3 (0.0-0.1) 09/14/18 18:32 Seg Neutrophils % 83.2 % (40.0-70.0) H 09/14/18 18:32 Seg Neutrophils # 8.6 K/mm3 (1.8-7.7) H 09/14/18 18:32 PT 14.3 Sec. (12.2-14.9) 09/14/18 18:32 INR 1.05 (0.87-1.13) 09/14/18 18:32 APTT 25.4 Sec. (24.2-36.6) 09/14/18 18:32 D-Dimer 250.09 ng/mlDDU (0-234) H 09/14/18 18:32 Sodium 140 mmol/L (137-145) 09/15/18 06:58 Potassium 4.6 mmol/L (3.6-5.0) 09/15/18 06:58 Chloride 106.1 mmol/L (98-107) 09/15/18 06:58 Carbon Dioxide 24 mmol/L (22-30) 09/15/18 06:58 Anion Gap 15 mmol/L 09/15/18 06:58 BUN 14 mg/dL (9-20) 09/15/18 06:58 Creatinine 1.1 mg/dL (0.8-1.5) D 09/15/18 06:58 Estimated GFR > 60 ml/min 09/15/18 06:58 BUN/Creatinine Ratio 13 % 09/15/18 06:58 Glucose 87 mg/dL (75-100) 09/15/18 06:58 Calcium 8.7 mg/dL (8.4-10.2) 09/15/18 06:58 Magnesium 2.40 mg/dL (1.7-2.3) H 09/15/18 06:58 Total Bilirubin 0.60 mg/dL (0.1-1.2) 09/14/18 18:32 AST 26 units/L (5-40) 09/14/18 18:32 ALT 17 units/L (7-56) 09/14/18 18:32 Alkaline Phosphatase 85 units/L (35-129) 09/14/18 18:32 Total Creatine Kinase 119 units/L (55-170) 09/14/18 18:32 Troponin T < 0.010 ng/mL (0.00-0.029) 09/14/18 23:08 Total Protein 6.6 g/dL (6.3-8.2) 09/14/18 18:32 Albumin 3.7 g/dL (3.9-5) L 09/14/18 18:32 Albumin/Globulin Ratio 1.3 % 09/14/18 18:32 TSH 0.976 mlU/mL (0.270-4.200) 09/14/18 18:32 Urine Color Yellow (Yellow) 09/14/18 04:00 Urine Turbidity Clear (Clear) 09/14/18 04:00 Urine pH 5.0 (5.0-7.0) 09/14/18 04:00 Ur Specific [place] 1.058 (1.003-1.030) H 09/14/18 04:00 Urine Protein <15 mg/dl mg/dL (Negative) 09/14/18 04:00 Urine Glucose (UA) Neg mg/dL (Negative) 09/14/18 04:00 Urine Ketones Neg mg/dL (Negative) 09/14/18 04:00 Urine Blood Neg (Negative) 09/14/18 04:00 Urine Nitrite Neg (Negative) 09/14/18 04:00 Urine Bilirubin Neg (Negative) 09/14/18 04:00 Urine Urobilinogen < 2.0 mg/dL (<2.0) 09/14/18 04:00 Ur Leukocyte Esterase Neg (Negative) 09/14/18 04:00 Urine WBC (Auto) 1.0 /HPF (0.0-6.0) 09/14/18 04:00 Urine RBC (Auto) < 1.0 /HPF (0.0-6.0) 09/14/18 04:00 U Epithel Cells (Auto) < 1.0 /HPF (0-13.0) 09/14/18 04:00 Urine Mucus Few /HPF 09/14/18 04:00 Valproic Acid < 2.8 ug/mL (50-100) L 09/14/18 18:32 Active Medications - Current Medications Current Medications: Generic Name Dose Route Start Last Admin Trade Name Freq PRN Reason Stop Dose Admin Acetaminophen 650 mg 09/14/18 23:16 Tylenol PO Q4H PRN Pain MILD(1-3)/Fever >100.5/BATES Acetaminophen/Hydrocodone Bitart 1 each 09/14/18 23:16 09/15/18 16:30 [place] 5/325 PO 1 each Q4H PRN Administration Pain, Moderate (4-6) Enoxaparin Sodium 40 mg 09/15/18 10:00 09/15/18 09:41 Lovenox SUB-Q 40 mg QDAY VERONIKA Administration Sodium Chloride 1,000 mls @ 75 mls/hr 09/14/18 23:45 09/16/18 04:56 Nacl 0.9% 1000 Ml IV 75 mls/hr DIRECT VERONIKA Administration Levetiracetam 1,000 mg/ Sodium 110 mls @ 400 mls/hr 09/15/18 10:00 09/15/18 21:21 Chloride IV 09/16/18 14:00 400 mls/hr Q12HR EVRONIKA Administration Levetiracetam 1,000 mg 09/16/18 22:00 Keppra PO BID VERONIKA Magnesium Hydroxide 30 ml 09/14/18 23:16 Milk Of Magnesia PO Q4H PRN Constipation Ondansetron HCl 4 mg 09/14/18 23:16 Zofran IV Q8H PRN Nausea And Vomiting Sodium Chloride 10 ml 09/15/18 10:00 09/15/18 21:21 Sodium Chloride Flush Syringe 10 Ml IV 10 ml BID VERONIKA Administration Sodium Chloride 10 ml 09/14/18 23:16 Sodium Chloride Flush Syringe 10 Ml IV PRN PRN LINE FLUSH
[2018-09-16] MEDS: LOVENOX SUB-Q SCH (10:13)
[2018-09-16] MEDS: SODIUM CHLORIDE FLUSH SYRINGE 10 ML IV SCH (10:13)
[2018-09-16] MEDS: KEPPRA 1,000 MG in NACL 0.9% 100 ML IV SCH (10:13)
--- NOTE | 2018-09-16 10:46 | Progress Note ---
Assessment and Plan Tele reviewed - pt in sinus bradycardia with HR 40s, no pauses noted, BPs stable. Await echo. No apparent cardiac etiology for syncope at this time. Await neuro consultation. Optimize BPs - resume home hydralazine, cont to hold AV iveth blocking agents. The patient has been seen in conjunction with Dr. Spencer who agrees with the assessment and plan of care. - Patient Problems (1) Syncope Current Visit: Yes Status: Acute Qualifiers: Syncope type: unspecified Qualified Code(s): R55 - Syncope and collapse (2) Sinus bradycardia Current Visit: Yes Status: Acute (3) HTN (hypertension) Current Visit: Yes Status: Chronic (4) Hyperlipidemia Current Visit: Yes Status: Chronic (5) Dementia Current Visit: Yes Status: Chronic (6) Seizure disorder Current Visit: Yes Status: Suspected (7) Prostate ca Current Visit: Yes Status: Resolved Subjective Date of service: 09/16/18 Principal diagnosis: syncope; sinus valerie Interval history: pt resting in bed, no current complaints. for bone scan today. tele reviewed - in SB on tele HR 40s, no pauses noted. Await neuro recs. Objective Last Vital Signs Temp 97.8 F 09/16/18 07:40 Pulse 47 L 09/16/18 07:40 Resp 18 09/16/18 07:40 BP 162/72 09/16/18 07:40 Pulse Ox 100 09/16/18 07:40 - Physical Examination General: No Apparent Distress HEENT: Positive: PERRL, Normocephaly, Mucus Membranes Moist Neck: Positive: neck supple, trachea midline Cardiac: Positive: Regular Rhythm, S1/S2, Bradycardia Lungs: Positive: Decreased Breath Sounds Neuro: Positive: Grossly Intact Abdomen: Negative: Tender Musculoskeletal: No Pain Extremities: Absent: edema - Imaging and Cardiology EKG: report reviewed, image reviewed Echo: pending, report reviewed (05/2017: EF 55-60%, mild LVH, trace TR) - Telemetry EKG Rhythm: Sinus Bradycardia
--- NOTE | 2018-09-16 13:40 | Nuclear Medicine Report ---
BONE SCAN: History: Sclerotic densities of the thoracic vertebra. Comparison: CTA chest dated 09/14/18. CT abdomen pelvis without contrast dated 09/15/18. After injection of isotope, gamma camera imaging of the bony system was done. There is a normal uptake of isotope throughout the bony structures without areas of significantly increased or decreased uptake. Normal uptake in the urinary system is seen. IMPRESSION: Normal bone scan. 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
[2018-09-16] MEDS: APRESOLINE PO SCH ×2 (15:00→22:57)
--- NOTE | 2018-09-16 16:55 | Progress Note ---
Subjective Date of service: 09/16/18 Principal diagnosis: syncope; sinus valerie Interval history: reviewed the cardiology note and went over labs does not appear metastatic disease from prostate Ca seizure work up pending recommend meds noted bardycardia Objective - Vital Sign Vital Signs - 12hr 09/16/18 09/16/18 09/16/18 07:40 11:00 14:01 Temperature 97.8 F Pulse Rate 47 L 50 L Pulse Rate [ 50 L From Monitor] Respiratory 18 22 18 Rate Blood Pressure 162/72 Blood Pressure 173/73 [Left] O2 Sat by Pulse 100 96 98 Oximetry 09/16/18 09/16/18 15:00 15:23 Temperature Pulse Rate 50 L Pulse Rate [ From Monitor] Respiratory Rate Blood Pressure 173/73 Blood Pressure [Left] O2 Sat by Pulse 100 Oximetry - Laboratory Findings CBC and BMP: 09/14/18 18:32 09/15/18 06:58 Abnormal Lab Findings: Abnormal Labs 09/14/18 09/14/18 09/14/18 04:00 18:32 18:32 Lymph % (Auto) 8.7 L Lymph # 0.9 L Seg Neutrophils % 83.2 H Seg Neutrophils # 8.6 H D-Dimer 250.09 H Carbon Dioxide Creatinine Glucose Magnesium Albumin Ur Specific [place] 1.058 H Valproic Acid 09/14/18 09/14/18 09/15/18 18:32 18:32 06:58 Lymph % (Auto) Lymph # Seg Neutrophils % Seg Neutrophils # D-Dimer Carbon Dioxide 21 L Creatinine < 0.2 L Glucose 107 H Magnesium 2.40 H Albumin 3.7 L Ur Specific [place] Valproic Acid < 2.8 L
[2018-09-16] MEDS: KEPPRA PO SCH (22:56)
[2018-09-17] MEDS: APRESOLINE PO SCH ×3 (08:38→22:53)
[2018-09-17] MEDS: NORCO 5/325 PO PRN (08:38)
[2018-09-17] MEDS: LOVENOX SUB-Q SCH (09:01)
[2018-09-17] MEDS: KEPPRA PO SCH ×2 (09:01→22:48)
[2018-09-17] MEDS: SODIUM CHLORIDE FLUSH SYRINGE 10 ML IV SCH ×2 (09:02→22:49)
[2018-09-17] MEDS: NACL 0.9% 1000 ML 1,000 ML IV SCH ×2 (09:04→22:49)
--- NOTE | 2018-09-17 09:12 | Progress Note ---
Assessment and Plan Assessment and plan: --Symptomatic bradycardia; heart rate ranges between 43-54 hold beta blockers, Cardiology following , possible pacemaker if needed Supportive care,Echo : EF 60-65% --Syncope and collapse; Due to symptomatic bradycardia ,Fall precautions CT head negative, carotid Doppler no significant stenosis Cardiology and neurology following, follow echo --History of Seizure disorder Antiepileptic medications, neurology evaluation --Generalized abdominal pain status post fall CT abdomen/pelvis; no acute abnormalities noted --Sclerotic densities of the thoracic vertebral bodies per imaging check bone scan to evaluate for metastases, h/o prostate cancer --Metabolic acidosis; IV fluid, will monitor bicarbonate level --Elevated d-dimer CTA chest negative for acute PE, check lower extremity Doppler --History of tremors of unknown etiology Neurology to evaluate --Dementia, stable --Hyperlipidemia; Continue statin --Hypertension, controlled --DVT prophylaxis with Lovenox Narrative the patient closely and adjust management as needed Follow cardiology and neurology Evaluation Disposition: For discharge when medically stable Plan of care is reviewed with the patient and his nurse History Interval history: No new events reported by the nursing staff Patient has persistent bradycardia The possible heart block Complains of generalized weakness and dizziness Vital signs noted Hospitalist Physical - Constitutional Vitals: Temp Pulse Resp BP Pulse Ox 97.8 F 50 L 20 179/71 96 09/17/18 07:53 09/17/18 08:38 09/17/18 08:38 09/17/18 08:38 09/17/18 08:28 General appearance: Present: no acute distress, well-nourished - EENT Eyes: Present: PERRL, EOM intact - Neck Neck: Present: supple, normal ROM - Respiratory Respiratory effort: normal Respiratory: bilateral: diminished, negative: rales, rhonchi, wheezing - Cardiovascular Rhythm: regular Heart Sounds: Present: S1 & S2 (bradycardia) - Extremities Extremities: no ischemia, pulses intact - Abdominal General gastrointestinal: soft, non-tender, non-distended, normal bowel sounds - Integumentary Integumentary: Present: clear, warm - Psychiatric Psychiatric: appropriate mood/affect, cooperative - Neurologic Neurologic: CNII-XII intact, moves all extremities Results - Labs CBC & Chem 7: 09/14/18 18:32 09/15/18 06:58 Labs: Laboratory Last Values WBC 10.3 K/mm3 (4.5-11.0) 09/14/18 18:32 RBC 4.80 M/mm3 (3.65-5.03) 09/14/18 18:32 Hgb 15.2 gm/dl (11.8-15.2) 09/14/18 18:32 Hct 44.7 % (35.5-45.6) 09/14/18 18:32 MCV 93 fl (84-94) 09/14/18 18:32 MCH 32 pg (28-32) 09/14/18 18:32 MCHC 34 % (32-34) 09/14/18 18:32 RDW 13.2 % (13.2-15.2) 09/14/18 18:32 Plt Count 182 K/mm3 (140-440) 09/14/18 18:32 Lymph % (Auto) 8.7 % (13.4-35.0) L 09/14/18 18:32 [place] % (Auto) 7.3 % (0.0-7.3) 09/14/18 18:32 Eos % (Auto) 0.3 % (0.0-4.3) 09/14/18 18:32 Baso % (Auto) 0.5 % (0.0-1.8) 09/14/18 18:32 Lymph # 0.9 K/mm3 (1.2-5.4) L 09/14/18 18:32 [place] # 0.8 K/mm3 (0.0-0.8) 09/14/18 18:32 Eos # 0.0 K/mm3 (0.0-0.4) 09/14/18 18:32 Baso # 0.1 K/mm3 (0.0-0.1) 09/14/18 18:32 Seg Neutrophils % 83.2 % (40.0-70.0) H 09/14/18 18:32 Seg Neutrophils # 8.6 K/mm3 (1.8-7.7) H 09/14/18 18:32 PT 14.3 Sec. (12.2-14.9) 09/14/18 18:32 INR 1.05 (0.87-1.13) 09/14/18 18:32 APTT 25.4 Sec. (24.2-36.6) 09/14/18 18:32 D-Dimer 250.09 ng/mlDDU (0-234) H 09/14/18 18:32 Sodium 140 mmol/L (137-145) 09/15/18 06:58 Potassium 4.6 mmol/L (3.6-5.0) 09/15/18 06:58 Chloride 106.1 mmol/L (98-107) 09/15/18 06:58 Carbon Dioxide 24 mmol/L (22-30) 09/15/18 06:58 Anion Gap 15 mmol/L 09/15/18 06:58 BUN 14 mg/dL (9-20) 09/15/18 06:58 Creatinine 1.1 mg/dL (0.8-1.5) D 09/15/18 06:58 Estimated GFR > 60 ml/min 09/15/18 06:58 BUN/Creatinine Ratio 13 % 09/15/18 06:58 Glucose 87 mg/dL (75-100) 09/15/18 06:58 Calcium 8.7 mg/dL (8.4-10.2) 09/15/18 06:58 Magnesium 2.40 mg/dL (1.7-2.3) H 09/15/18 06:58 Total Bilirubin 0.60 mg/dL (0.1-1.2) 09/14/18 18:32 AST 26 units/L (5-40) 09/14/18 18:32 ALT 17 units/L (7-56) 09/14/18 18:32 Alkaline Phosphatase 85 units/L (35-129) 09/14/18 18:32 Total Creatine Kinase 119 units/L (55-170) 09/14/18 18:32 Troponin T < 0.010 ng/mL (0.00-0.029) 09/14/18 23:08 Total Protein 6.6 g/dL (6.3-8.2) 09/14/18 18:32 Albumin 3.7 g/dL (3.9-5) L 09/14/18 18:32 Albumin/Globulin Ratio 1.3 % 09/14/18 18:32 TSH 0.976 mlU/mL (0.270-4.200) 09/14/18 18:32 Urine Color Yellow (Yellow) 09/14/18 04:00 Urine Turbidity Clear (Clear) 09/14/18 04:00 Urine pH 5.0 (5.0-7.0) 09/14/18 04:00 Ur Specific [place] 1.058 (1.003-1.030) H 09/14/18 04:00 Urine Protein <15 mg/dl mg/dL (Negative) 09/14/18 04:00 Urine Glucose (UA) Neg mg/dL (Negative) 09/14/18 04:00 Urine Ketones Neg mg/dL (Negative) 09/14/18 04:00 Urine Blood Neg (Negative) 09/14/18 04:00 Urine Nitrite Neg (Negative) 09/14/18 04:00 Urine Bilirubin Neg (Negative) 09/14/18 04:00 Urine Urobilinogen < 2.0 mg/dL (<2.0) 09/14/18 04:00 Ur Leukocyte Esterase Neg (Negative) 09/14/18 04:00 Urine WBC (Auto) 1.0 /HPF (0.0-6.0) 09/14/18 04:00 Urine RBC (Auto) < 1.0 /HPF (0.0-6.0) 09/14/18 04:00 U Epithel Cells (Auto) < 1.0 /HPF (0-13.0) 09/14/18 04:00 Urine Mucus Few /HPF 09/14/18 04:00 Valproic Acid < 2.8 ug/mL (50-100) L 09/14/18 18:32 Active Medications - Current Medications Current Medications: Generic Name Dose Route Start Last Admin Trade Name Freq PRN Reason Stop Dose Admin Acetaminophen 650 mg 09/14/18 23:16 Tylenol PO Q4H PRN Pain MILD(1-3)/Fever >100.5/BATES Acetaminophen/Hydrocodone Bitart 1 each 09/14/18 23:16 09/17/18 08:38 [place] 5/325 PO 1 each Q4H PRN Administration Pain, Moderate (4-6) Enoxaparin Sodium 40 mg 09/15/18 10:00 09/17/18 09:01 Lovenox SUB-Q 40 mg QDAY VERONIKA Administration Hydralazine HCl 25 mg 09/16/18 14:00 09/17/18 08:38 Apresoline PO 25 mg Q8HR VERONIKA Administration Sodium Chloride 1,000 mls @ 75 mls/hr 09/14/18 23:45 09/17/18 09:04 Nacl 0.9% 1000 Ml IV 75 mls/hr DIRECT VERONIKA Administration Levetiracetam 1,000 mg 09/16/18 22:00 09/17/18 09:01 Keppra PO 1,000 mg BID VERONIKA Administration Magnesium Hydroxide 30 ml 09/14/18 23:16 Milk Of Magnesia PO Q4H PRN Constipation Ondansetron HCl 4 mg 09/14/18 23:16 Zofran IV Q8H PRN Nausea And Vomiting Sodium Chloride 10 ml 09/15/18 10:00 09/17/18 09:02 Sodium Chloride Flush Syringe 10 Ml IV 10 ml BID VERONIKA Administration Sodium Chloride 10 ml 09/14/18 23:16 Sodium Chloride Flush Syringe 10 Ml IV PRN PRN LINE FLUSH
[2018-09-17] MEDS ORDERED: APRESOLINE IV PRN (10:30)
--- NOTE | 2018-09-17 10:36 | Progress Note ---
Assessment and Plan Tele reviewed - pt remains in sinus bradycardia with HR 40s - 50s, no pauses noted, BPs elevated. Optimize BPs - resume home lisinopril and increase hydralazine. Cont to hold AV iveth blocking agents. Office records reviewed - pt noted to have Parkinson's disease and chronic sinus bradycardia. Lexiscan MPI stress test done 02/2016 was normal. Event monitor done 02/2016 showed SB/SR, unremarkable. No apparent cardiac etiology for syncope at this time. Neuro eval in progress. Currently stable cardiac status. Will follow on as needed basis. Recommend follow up in our office with Dr. Jensen within 1-2 weeks of hospital discharge ([phone]). The patient has been seen in conjunction with Dr. Spencer who agrees with the assessment and plan of care. - Patient Problems (1) Syncope Current Visit: Yes Status: Acute Qualifiers: Syncope type: unspecified Qualified Code(s): R55 - Syncope and collapse (2) Sinus bradycardia Current Visit: Yes Status: Acute (3) HTN (hypertension) Current Visit: Yes Status: Chronic (4) Hyperlipidemia Current Visit: Yes Status: Chronic (5) Dementia Current Visit: Yes Status: Chronic (6) Seizure disorder Current Visit: Yes Status: Suspected (7) Prostate ca Current Visit: Yes Status: Resolved (8) Parkinson's disease Current Visit: Yes Status: Chronic Subjective Date of service: 09/17/18 Principal diagnosis: syncope; sinus valerie Interval history: pt resting in bed, no current complaints. tele reviewed - in SB on tele HR 40s - 50s, no pauses noted. Objective Last Vital Signs Temp 97.8 F 09/17/18 07:53 Pulse 50 L 09/17/18 08:38 Resp 20 09/17/18 08:38 BP 179/71 09/17/18 08:38 Pulse Ox 96 09/17/18 08:28 - Physical Examination General: No Apparent Distress HEENT: Positive: PERRL, Normocephaly, Mucus Membranes Moist Neck: Positive: neck supple, trachea midline Cardiac: Positive: Regular Rhythm, S1/S2 Lungs: Positive: Decreased Breath Sounds Neuro: Positive: Grossly Intact Abdomen: Negative: Tender Musculoskeletal: No Pain Extremities: Absent: edema - Imaging and Cardiology EKG: report reviewed, image reviewed Echo: pending, report reviewed (05/2017: EF 55-60%, mild LVH, trace TR)
[2018-09-17] MEDS: ZESTRIL PO SCH (11:11)
[2018-09-18] MEDS: NORCO 5/325 PO PRN (04:43)
[2018-09-18] MEDS: APRESOLINE PO SCH ×2 (05:45→13:42)
[2018-09-18] MEDS: KEPPRA PO SCH (09:02)
[2018-09-18] MEDS: LOVENOX SUB-Q SCH (09:02)
[2018-09-18] MEDS: SODIUM CHLORIDE FLUSH SYRINGE 10 ML IV SCH (09:03)
--- NOTE | 2018-09-18 09:05 | Progress Note ---
Assessment and Plan Assessment and plan: --Bradycardia; heart rate ranges between 43-54 hold beta blockers, Cardiology following , possible pacemaker if needed Supportive care,Echo : EF 60-65% --Syncope and collapse; Due to symptomatic bradycardia ,Fall precautions CT head negative, carotid Doppler no significant stenosis Cardiology and neurology following, follow echo --History of Seizure disorder Antiepileptic medications, neurology evaluation --Generalized abdominal pain status post fall CT abdomen/pelvis; no acute abnormalities noted --Sclerotic densities of the thoracic vertebral bodies per imaging check bone scan to evaluate for metastases, h/o prostate cancer --Metabolic acidosis; IV fluid, will monitor bicarbonate level --Elevated d-dimer CTA chest negative for acute PE, check lower extremity Doppler --History of tremors of unknown etiology Neurology to evaluate --Dementia, stable --Hyperlipidemia; Continue statin --Hypertension, controlled --DVT prophylaxis with Lovenox Narrative the patient closely and adjust management as needed Follow cardiology and neurology Evaluation Disposition: For discharge when medically stable Plan of care is reviewed with the patient and his nurse Hospitalist Physical - Constitutional Vitals: Temp Pulse Resp BP Pulse Ox 98.1 F 45 L 18 167/79 97 09/18/18 07:38 09/18/18 08:00 09/18/18 07:38 09/18/18 07:38 09/18/18 08:00 General appearance: Present: no acute distress, well-nourished Results - Labs CBC & Chem 7: 09/14/18 18:32 09/15/18 06:58 Labs: Laboratory Last Values WBC 10.3 K/mm3 (4.5-11.0) 09/14/18 18:32 RBC 4.80 M/mm3 (3.65-5.03) 09/14/18 18:32 Hgb 15.2 gm/dl (11.8-15.2) 09/14/18 18:32 Hct 44.7 % (35.5-45.6) 09/14/18 18:32 MCV 93 fl (84-94) 09/14/18 18:32 MCH 32 pg (28-32) 09/14/18 18:32 MCHC 34 % (32-34) 09/14/18 18:32 RDW 13.2 % (13.2-15.2) 09/14/18 18:32 Plt Count 182 K/mm3 (140-440) 09/14/18 18:32 Lymph % (Auto) 8.7 % (13.4-35.0) L 09/14/18 18:32 [place] % (Auto) 7.3 % (0.0-7.3) 09/14/18 18:32 Eos % (Auto) 0.3 % (0.0-4.3) 09/14/18 18:32 Baso % (Auto) 0.5 % (0.0-1.8) 09/14/18 18:32 Lymph # 0.9 K/mm3 (1.2-5.4) L 09/14/18 18:32 [place] # 0.8 K/mm3 (0.0-0.8) 09/14/18 18:32 Eos # 0.0 K/mm3 (0.0-0.4) 09/14/18 18:32 Baso # 0.1 K/mm3 (0.0-0.1) 09/14/18 18:32 Seg Neutrophils % 83.2 % (40.0-70.0) H 09/14/18 18:32 Seg Neutrophils # 8.6 K/mm3 (1.8-7.7) H 09/14/18 18:32 PT 14.3 Sec. (12.2-14.9) 09/14/18 18:32 INR 1.05 (0.87-1.13) 09/14/18 18:32 APTT 25.4 Sec. (24.2-36.6) 09/14/18 18:32 D-Dimer 250.09 ng/mlDDU (0-234) H 09/14/18 18:32 Sodium 140 mmol/L (137-145) 09/15/18 06:58 Potassium 4.6 mmol/L (3.6-5.0) 09/15/18 06:58 Chloride 106.1 mmol/L (98-107) 09/15/18 06:58 Carbon Dioxide 24 mmol/L (22-30) 09/15/18 06:58 Anion Gap 15 mmol/L 09/15/18 06:58 BUN 14 mg/dL (9-20) 09/15/18 06:58 Creatinine 1.1 mg/dL (0.8-1.5) D 09/15/18 06:58 Estimated GFR > 60 ml/min 09/15/18 06:58 BUN/Creatinine Ratio 13 % 09/15/18 06:58 Glucose 87 mg/dL (75-100) 09/15/18 06:58 Calcium 8.7 mg/dL (8.4-10.2) 09/15/18 06:58 Magnesium 2.40 mg/dL (1.7-2.3) H 09/15/18 06:58 Total Bilirubin 0.60 mg/dL (0.1-1.2) 09/14/18 18:32 AST 26 units/L (5-40) 09/14/18 18:32 ALT 17 units/L (7-56) 09/14/18 18:32 Alkaline Phosphatase 85 units/L (35-129) 09/14/18 18:32 Total Creatine Kinase 119 units/L (55-170) 09/14/18 18:32 Troponin T < 0.010 ng/mL (0.00-0.029) 09/14/18 23:08 Total Protein 6.6 g/dL (6.3-8.2) 09/14/18 18:32 Albumin 3.7 g/dL (3.9-5) L 09/14/18 18:32 Albumin/Globulin Ratio 1.3 % 09/14/18 18:32 TSH 0.976 mlU/mL (0.270-4.200) 09/14/18 18:32 Urine Color Yellow (Yellow) 09/14/18 04:00 Urine Turbidity Clear (Clear) 09/14/18 04:00 Urine pH 5.0 (5.0-7.0) 09/14/18 04:00 Ur Specific [place] 1.058 (1.003-1.030) H 09/14/18 04:00 Urine Protein <15 mg/dl mg/dL (Negative) 09/14/18 04:00 Urine Glucose (UA) Neg mg/dL (Negative) 09/14/18 04:00 Urine Ketones Neg mg/dL (Negative) 09/14/18 04:00 Urine Blood Neg (Negative) 09/14/18 04:00 Urine Nitrite Neg (Negative) 09/14/18 04:00 Urine Bilirubin Neg (Negative) 09/14/18 04:00 Urine Urobilinogen < 2.0 mg/dL (<2.0) 09/14/18 04:00 Ur Leukocyte Esterase Neg (Negative) 09/14/18 04:00 Urine WBC (Auto) 1.0 /HPF (0.0-6.0) 09/14/18 04:00 Urine RBC (Auto) < 1.0 /HPF (0.0-6.0) 09/14/18 04:00 U Epithel Cells (Auto) < 1.0 /HPF (0-13.0) 09/14/18 04:00 Urine Mucus Few /HPF 09/14/18 04:00 Valproic Acid < 2.8 ug/mL (50-100) L 09/14/18 18:32 Active Medications - Current Medications Current Medications: Generic Name Dose Route Start Last Admin Trade Name Freq PRN Reason Stop Dose Admin Acetaminophen 650 mg 09/14/18 23:16 Tylenol PO Q4H PRN Pain MILD(1-3)/Fever >100.5/BATES Acetaminophen/Hydrocodone Bitart 1 each 09/14/18 23:16 09/18/18 04:43 [place] 5/325 PO 1 each Q4H PRN Administration Pain, Moderate (4-6) Enoxaparin Sodium 40 mg 09/15/18 10:00 09/18/18 09:02 Lovenox SUB-Q 40 mg QDAY VERONIKA Administration Hydralazine HCl 10 mg 09/17/18 10:30 Apresoline IV Q4HR PRN Hypertension Hydralazine HCl 50 mg 09/17/18 10:38 09/18/18 05:45 Apresoline PO Not Given Q8HR VERONIKA Sodium Chloride 1,000 mls @ 75 mls/hr 09/14/18 23:45 09/17/18 22:49 Nacl 0.9% 1000 Ml IV 75 mls/hr DIRECT VERONIKA Administration Levetiracetam 1,000 mg 09/16/18 22:00 09/18/18 09:02 Keppra PO 1,000 mg BID VERONIKA Administration Lisinopril 20 mg 09/17/18 11:00 09/17/18 11:11 Zestril PO 20 mg QDAY VERONIKA Administration Magnesium Hydroxide 30 ml 09/14/18 23:16 Milk Of Magnesia PO Q4H PRN Constipation Ondansetron HCl 4 mg 09/14/18 23:16 Zofran IV Q8H PRN Nausea And Vomiting Sodium Chloride 10 ml 09/15/18 10:00 09/18/18 09:03 Sodium Chloride Flush Syringe 10 Ml IV 10 ml BID VERONIKA Administration Sodium Chloride 10 ml 09/14/18 23:16 Sodium Chloride Flush Syringe 10 Ml IV PRN PRN LINE FLUSH
[2018-09-18] MEDS: ZESTRIL PO SCH (09:07)
[2018-09-18 14:04] VITALS: BP 167/69
--- NOTE | 2018-09-18 14:51 | Discharge Summary ---
Providers - Providers Date of Admission: 09/14/18 23:16 Date of discharge: 09/18/18 Attending physician: CHEN BULL 09/14/18 23:51 Consult to Physician [CONS] Routine Comment: Consulting Provider: CHELO ROMANO Physician Instructions: Reason For Exam: seizure 09/15/18 16:06 Physical Therapy Evaluation and Treat [CONS] Routine Comment: Reason For Exam: syncope Hospitalization Reason for admission: Recurrent syncope Condition: Fair Pertinent studies: Chest x-ray CT head CTA chest Carotid Doppler Abdominal CT Echocardiogram Bone scan nuclear medicine Hospital course: 73-year-old male patient with history of seizure disorder and recurrent syncope was admitted through ED with history of syncopal episode. Patient was initially evaluated, symptomatically managed, evaluated by cardiology and neurology, had extensive workup Patient received physical therapy occupational therapy Today patient is comfortable no new complaints vital signs stable physical exam unremarkable Patient is hemodynamically and clinically stable for discharge Cleared by all the consultants and follow-up with them per schedule Discharge diagnoses: --Bradycardia; heart rate ranges between 43-54 hold beta blockers, Cardiology following , possible pacemaker if needed Supportive care,Echo : EF 60-65% --Syncope and collapse; Due to symptomatic bradycardia ,Fall precautions CT head negative, carotid Doppler no significant stenosis Cardiology and neurology following, follow echo --History of Seizure disorder Antiepileptic medications, neurology evaluation --Generalized abdominal pain status post fall CT abdomen/pelvis; no acute abnormalities noted --Sclerotic densities of the thoracic vertebral bodies per imaging check bone scan to evaluate for metastases, h/o prostate cancer --Metabolic acidosis; IV fluid, will monitor bicarbonate level --Elevated d-dimer CTA chest negative for acute PE, check lower extremity Doppler --History of tremors of unknown etiology Neurology to evaluate --Dementia, stable --Hyperlipidemia; Continue statin --Hypertension, controlled --DVT prophylaxis with Lovenox Monitor the patient closely and adjust management as needed Follow cardiology and neurology Evaluation Disposition: Medically stable for discharge Disposition: [id number] HOME UND[facility] Time spent for discharge: 32 min Core Measure Documentation - Palliative Care Palliative Care/ Comfort Measures: Not Applicable - Core Measures Any of the following diagnoses?: none Exam - Constitutional Vitals: Temp Pulse Resp BP Pulse Ox 98.8 F 56 L 18 167/69 97 09/18/18 14:00 09/18/18 14:00 09/18/18 14:00 09/18/18 14:00 09/18/18 14:00 General appearance: Present: no acute distress, well-nourished - EENT Eyes: Present: PERRL, EOM intact - Neck Neck: Present: supple, normal ROM - Respiratory Respiratory effort: normal Respiratory: bilateral: diminished, negative: rales, rhonchi, wheezing - Cardiovascular Rhythm: regular Heart Sounds: Present: S1 & S2 - Extremities Extremities: no ischemia, No edema - Abdominal General gastrointestinal: Present: soft, non-tender, non-distended, normal bowel sounds - Integumentary Integumentary: Present: clear, warm - Musculoskeletal Musculoskeletal: strength equal bilaterally, generalized weakness - Psychiatric Psychiatric: appropriate mood/affect, cooperative - Neurologic Neurologic: CNII-XII intact, moves all extremities Plan Activity: advance as tolerated, no driving until cleared by PCP, fall precautions, other (seizure precautions) Diet: other (cardiac diet) Additional Instructions: Advised to follow private oncologist in 1-2 weeks. Follow private surgery aid in 1 week. Private neurologist in 1 week [outpatient EEG at neurologist office] Follow up with: MOI LOVE [Other] - 3-5 Days KOMAL RODRIGUEZ MD [Staff Physician] - 7 Days LALITO MCDERMOTT MD [Staff Physician] - 7 Days Prescriptions: hydrALAZINE [Apresoline TAB] 50 mg PO Q8HR #90 tab levETIRAcetam [Keppra TAB] 1,000 mg PO BID #60 tablet
--- NOTE | 2018-09-18 15:15 | Progress Note ---
Subjective Date of service: 09/18/18 Principal diagnosis: syncope; sinus valerie Interval history: no further seizures stable for discharge continue to monitor set up rehab Objective - Vital Sign Vital Signs - 12hr 09/18/18 09/18/18 09/18/18 05:44 05:45 07:38 Temperature 98.1 F Pulse Rate 48 L 45 L Pulse Rate [ From Monitor] Respiratory 18 Rate Blood Pressure 173/73 173/73 167/79 Blood Pressure [Left] O2 Sat by Pulse 97 Oximetry 09/18/18 09/18/18 09/18/18 08:00 09:06 09:07 Temperature Pulse Rate 48 L Pulse Rate [ 45 L From Monitor] Respiratory Rate Blood Pressure 134/74 134/74 Blood Pressure [Left] O2 Sat by Pulse 97 97 Oximetry 09/18/18 09/18/18 10:00 14:00 Temperature 98.8 F Pulse Rate 48 L 56 L Pulse Rate [ From Monitor] Respiratory 18 Rate Blood Pressure Blood Pressure 167/69 [Left] O2 Sat by Pulse 97 Oximetry - Laboratory Findings CBC and BMP: 09/14/18 18:32 09/15/18 06:58 Abnormal Lab Findings: Abnormal Labs 09/14/18 09/14/18 09/14/18 04:00 18:32 18:32 Lymph % (Auto) 8.7 L Lymph # 0.9 L Seg Neutrophils % 83.2 H Seg Neutrophils # 8.6 H D-Dimer 250.09 H Carbon Dioxide Creatinine Glucose Magnesium Albumin Ur Specific [place] 1.058 H Valproic Acid 09/14/18 09/14/18 09/15/18 18:32 18:32 06:58 Lymph % (Auto) Lymph # Seg Neutrophils % Seg Neutrophils # D-Dimer Carbon Dioxide 21 L Creatinine < 0.2 L Glucose 107 H Magnesium 2.40 H Albumin 3.7 L Ur Specific [place] Valproic Acid < 2.8 L
== END 2018-09-18 17:55 | disposition home health service (06) | DRG 309 ==
LOC: ED 17:03 → 2B-ACE 23:16
PROVIDERS: ADMIT Internal Medicine; ATTEND Internal Medicine
DX: R00.1 Bradycardia, unspecified (principal); E87.2 Acidosis; G40.901 Epilepsy, unspecified, not intractable, with status epilepticus; I10 Essential (primary) hypertension; E78.5 Hyperlipidemia, unspecified; R10.9 Unspecified abdominal pain; G20 Parkinson's disease; F02.80 Dementia in other diseases classified elsewhere, unspecified severity, without behavioral disturbance, psychotic disturbance, mood disturbance, and anxiety; C61 Malignant neoplasm of prostate; Z90.49 Acquired absence of other specified parts of digestive tract; Z79.82 Long term (current) use of aspirin
CPT/HCPCS: 36415; 70450; 71045; 71275; 74176; 78306; 80048; 80053; 80164; 81001; 82550; 83735; 84443; 84484; 85025; 85379; 85610; 85730; 87116; 93005; 93010; 93306; 93880; G0378; A9503; J1650; J1953; J7030; J7040; Q9967